=== PATIENT | female | born 1970 | race Caucasian/White ===

== ENCOUNTER → 2019-08-10 09:39 | Outpatient (CLI) | payer BC, SELFPAY | PROVIDERS: PCP Nurse Practitioner Family; Referring Provider Family Medicine; Visit Provider Family Medicine | DX: R91.8 Other nonspecific abnormal finding of lung field (principal) ==

== ENCOUNTER → 2019-08-17 10:00 | Outpatient (CLI) | payer BC, SELFPAY ==
--- NOTE | 2019-08-17 10:30 | PET_ITS ---
EXAMINATION: FDG PET CT INDICATIONS: A 48-year-old female with reported history of pulmonary nodularity. COMPARISON EXAMINATION: None available. NON-INDEX LESION SIZE SUV INTERPRETATION Bilateral thoracic perihilum 2.5 (max) Quantitative criteria for viable neoplasm are not fulfilled TECHNIQUE: Following the intravenous administration of 16.38 mCi of F-18 deoxyglucose via the right antecubital fossa, multiplanar image acquisitions of the neck, chest, abdomen and pelvis to level of mid thigh, obtained at one hour post radiopharmaceutical administration contemporaneously interpreted with the current CT of the neck, chest, abdomen and pelvis to level of mid thigh, dated 08/17/19 via coregistration reveal: SERUM GLUCOSE LEVEL: 90 mg/dl. HEIGHT: 67 inches. WEIGHT: 215 lbs. FINDINGS: 1. Mild increased glucose concentration is demonstrated in the bilateral thoracic perihilum generating a calculated maximum standard uptake value of 2.5. Quantitative criteria for neoplasm are not fulfilled. 2. Normal physiologic distribution of the radiopharmaceutical is apparent in the hepatic (3.8) and splenic parenchyma, both renal units, bladder and visualized intestinal tract. There is uniform distribution of the radiopharmaceutical concentration defined in the visualized cerebellar hemispheres and cerebral cortical structures.? Diffuse intestinal tract activity is noted throughout all four quadrants of the abdominal-pelvic retroperitoneum, mesentery consistent with normal physiologic distribution of the radiopharmaceutical most accentuated in the proximal-mid ascending colon. Prominent glucose concentration is observed in the left ventricular myocardium commensurate with the pattern associated with failure to fast. (Kiera, Journal of Nuclear Medicine Technology 31:3, 2003). Facilitated radiopharmaceutical concentration is observed in the proximal-distal esophagus, gastroesophageal junction, diffusely apparent throughout the visualized abdominal and pelvic retroperitoneum and mesentery contiguous to the gastrointestinal tract. There is facilitated uptake noted in the bilateral perioccipital regions, as well as right axilla without evidence of corresponding soft tissue most consistent with visualization of brown adipose tissue. (Braden epps al, Journal of Nuclear Medicine 29:1393, 2002). Pertinent CT findings are as follows. CHEST: A calcified density noted in the right mid anteromedial lung field is non-glucose avid. Atherosclerotic calcification is defined in the thoracic aorta without evidence of dilatation, aneurysm formation. Bilateral axillary and scattered calcified and noncalcified mediastinal and thoracic perihilar soft tissue is ametabolic. ABDOMEN AND PELVIS: There is borderline fatty metamorphosis defined within the hepatic parenchyma. Atherosclerotic calcification is defined in the abdominal aorta without evidence of dilatation, aneurysm formation. Pelvic arterial calcification is observed. Right-left inguinal soft tissue densities with fatty hilus formation demonstrate no evidence of increased glucose metabolism. SKELETAL: Degenerative changes defined in the cervical, thoracic and lumbar spine demonstrate no evidence for glucose hypermetabolism. PET/PET/CT Tumor Base -Thigh Init IMPRESSION: 1. NEGATIVE EXAMINATION. There is no definitive quantitative scintigraphic evidence of viable neoplasm. 2. Mild enhanced FDG distribution noted in the bilateral thoracic perihilum does not fulfill quantitative criteria for viable neoplasm. (Wanda et al, Journal of Clinical Oncology 16:2142, 1998). 3. Prominent intestinal tract distribution of radiopharmaceutical noted in the region of the proximal-mid ascending colon is most consistent with physiologic distribution of the radiopharmaceutical. If intraluminal soft tissue mass formation is a diagnostic consideration, correlation with CT of the abdomen and pelvis with oral and intravenous contrast is recommended. (Do[place]inna et al, Journal of Nuclear Medicine, 30:S276, 2003). 4. Anatomic stability may be ensured in the nonglucose avid, calcified right lung parenchymal density with repeat CT of the thorax in three-six months. (Costa, Seminars in Thoracic and Cardiovascular Surgery 14:292, 2002). Electronic Signature Cricket Pena D.O. Electronically Signed: Cricket Pena DO at 23:35 EST Tel , Service support ,
== END ==
LOC: ONC 10:01
PROVIDERS: PCP Nurse Practitioner Family; Referring Provider Family Medicine; Visit Provider Family Medicine
DX: R91.8 Other nonspecific abnormal finding of lung field (principal)
CPT/HCPCS: 78815; A9552

== ENCOUNTER → 2019-09-08 10:54 | Outpatient (CLI) | payer BC, SELFPAY ==
--- NOTE | 2019-09-08 10:57 | ECHOD_ITS ---
Reason For Study: SOB with exertion Procedure This was a 2D Doppler, Color Flow transthoracic echocardiogram. Exam performed in department. Left Ventricle Normal size and thickness. The estimated ejection fraction is 60 %. No evidence for diastolic dysfunction. No regional wall motion abnormalities noted. Right Ventricle Normal RV size. Normal systolic function. Atria Normal left atrium. Normal right atrium. No doppler evidence for ASD. Mitral Valve There is no mitral valve stenosis. No mitral valve insufficiency. Tricuspid Valve There is no tricuspid stenosis. Unable to estimate RV systolic pressure due to inadequate jet, pulmonary artery pressure probably normal. Aortic Valve Trisinus/trileaflet aortic valve. There is no aortic stenosis. No aortic valve insufficiency. Pulmonic Valve There is no pulmonic valvular stenosis. No pulmonic valve insufficiency. Great Vessels Normal aortic root. Pericardium/Pleural No pericardial effusion. MMode/2D Measurements & Calculations LVIDd: 4.7 cm IVSd: 1.1 cm Ao root diam: 2.8 cm LVIDs: 3.0 cm LVPWd: 1.1 cm RVDd: 2.9 cm FS: 35.3 % LAV(MOD-bp): 51.3 ml LA A4 area: 17.2 cm2 LA dimension(2D): 3.7 cm LAV(MOD-bp) Indexed: 24.8 ml/m2 LAV(MOD-sp2): 51.0 ml LAV(MOD-sp4): 50.0 ml RA A4 area: 15.3 cm2 Time Measurements MV dec time: 0.21 sec Doppler Measurements & Calculations MV E max georges: 85.4 cm/sec Lat Peak E' Georges: 8.0 cm/sec Med Peak E' Georges: 5.9 cm/sec MV A max georges: 89.2 cm/sec E/E' lat: 10.7 E/E' med: 14.6 MV E/A: 0.96 Ao V2 max: 162.0 cm/sec LV V1 max: 105.4 cm/sec PA V2 max: 101.1 cm/sec Ao max P.6 mmHg LV V1 max P.4 mmHg Interpretation Summary The estimated ejection fraction is 60 %. No evidence for diastolic dysfunction. Ordering Physician: Yvonne Morales Referring Physician: Yvonne Morales Performed By: Lillian Estrada, DUANE, RVT
== END ==
LOC: CVS 10:55
PROVIDERS: Referring Provider Nurse Practitioner Family; Visit Provider Nurse Practitioner Family
DX: R06.02 Shortness of breath (principal)
CPT/HCPCS: 93306

== ENCOUNTER 2022-04-26 19:45 | Emergency (ER) | payer MEDICAID, SELFPAY ==
[2022-04-26 19:45] VITALS: BP 167/81; PULSE 101; RESP 16; TEMP 36.6; O2SAT 99; BMI 31.3
[2022-04-26 20:21] VITALS: BP 132/78; PULSE 74; RESP 14; O2SAT 98
--- NOTE | 2022-06-13 17:09 | ED.VIS.BACK ---
HPI History of Present Illness Chief Complaint: Back Informant: patient Onset/Context/Timing Onset: Days Context: Gradual Onset Timing: Intermittent Quality: Aching and Burning Location: Left Leg Current Severity: Moderate Maximum Severity: Moderate Worsened by: improves with Movement Relieved by: Remaining Still Associated Symptoms Associated Symptoms: Numbness, Tingling and Radiation to Left Leg; Negative for Unable to Ambulate, Urinary Retention, Urinary Incontinence, Constipation or Fecal Incontinence Narrative Narrative: This patient was originally seen on 04/26/2022. Dictation was either not done at that time or some mild loss. Being redictated on 06/13/2022 at 5:15 PM to the best of my recommendation and knowledge of the prior visit and evaluation. 51-year-old female has chronic back pain with a history of degenerative disc disease. States that she has pain in her lower back with radiation to her left buttock hamstring and lower leg. Denies any bowel or bladder incontinence. Denies any fall or trauma. No fever. Prior similar symptoms: Yes Recent Illness/Hospitalization: No PFSH PFSH Medical History Anxiety Back pain Degenerative disc disease Depression HTN (hypertension) Home Medications hydroxyzine pamoate 25 mg capsule 25 mg PO TID PRN PRN Anxiety ##30 04/02/16 [Rx Last Taken Unknown] lisinopril 10 mg tablet 10 mg PO DAILY 04/02/16 [History Last Taken Unknown] pregabalin 150 mg capsule 150 mg PO TID 04/28/22 [History Last Taken Unknown] simvastatin 10 mg tablet 1 tab PO QHS 04/28/22 [History Last Taken Unknown] omeprazole 20 mg capsule,delayed release 20 mg PO DAILY 05/26/22 [History Last Taken Unknown] oxycodone-acetaminophen 5 mg-325 mg tablet (Percocet) 1 tab PO Q6H PRN pain 3 days #10 tabs 05/26/22 [Rx Last Taken Unknown] sertraline 100 mg tablet 100 mg PO DAILY 05/26/22 [History Last Taken Unknown] tizanidine 2 mg capsule 2 mg PO Q8H PRN muscle spasticity #10 caps 05/26/22 [Rx Last Taken Unknown] Allergy/AdvReac Type Severity Reaction Status Date / Time No Known Allergies Allergy Verified 05/26/22 17:16 Social History Smoking Status: Current every day smoker tobacco type: cigarettes ROS ROS ED ROS Narrative Back pain. Review of Systems ROS Unobtainable: Denies due to encephalopathy Constitutional Constitutional ED: Denies chills Eyes Eyes: Denies blurry vision ENT ENT ED: Denies ear pain Cardiovascular Cardiovascular: Denies chest pain Respiratory/Chest Respiratory/Chest: Denies dyspnea Gastrointestinal Gastrointestinal: Denies abdominal pain Genitourinary Genitourinary ED: Denies dysuria Musculoskeletal Musculoskeletal: Denies arthralgias Integumentary Denies abscess Neurologic Neurologic: Denies headache(s) Psychiatric Psychiatric: Denies anxiety Endocrine Endocrinology: Denies cold intolerance Hematologic/Lymphatic Hematologic/Lymphatic: Denies easy bleeding Allergic/Immunologic Allergic/Immunologic ED: Denies mouth swelling EXAM Physical Exam Narrative Exam Narrative: Middle-aged female vital signs are stable afebrile. H EENT exam unremarkable. Neck nontender. Lungs are clear. Heart regular rhythm no murmur. Abdomen soft nontender. Obese. Moving all 4 extremities. 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 Dorsi plantarflexion intact. No cauda equina. No saddle anesthesia. Left SI tenderness. Positive straight leg raise on the left at about 30 degrees. No signs of trauma. Neurologic exam unremarkable. No focal motor deficits. Const Positive well nourished, well developed and obese; Negative for cachectic, contractures or unkempt General Appearance ED: well developed and NAD; Negative for unkempt, cachectic, contractures or pallor Nutritional Appearance: obese; Negative for cachectic HEENT Reports moist mucous membranes Negative for trauma Eyes PERRL and EOMs intact bilaterally General Eye ED: Negative for pale conjunctiva or scleral icterus Neck no lymphadenopathy, supple and no JVD General: Negative for tenderness Thyroid: Negative for other Chest Wall Chest: Negative for other Resp normal respiratory effort and clear to auscultation bilaterally Effort and Inspection: Negative for pain with movement Auscultation: Negative for rales Percussion: Negative for other Cardio regular rate, regular rhythm, S1 normal heart sound, S2 normal heart sound and no murmurs Palpation: Negative for palpable S3 Rate: Negative for bradycardia Rhythm: Negative for abnormal rhythm Bruits: Negative for other GI normal to inspection, nondistended, normoactive bowel sounds, soft to palpation, non-tender, non-distended and no masses Inspection: Negative for abdominal distention Auscultation: Negative for hyperactive bowel sounds Palpation: Negative for tender, guarding, pulsatile mass or rebound tenderness present Back/Spine normal to inspection and no thoracic nor lumbar tenderness Back/Spine Narrative: Left SI tenderness. Left straight leg raise at 45 degrees. General Back: Negative for CVA tenderness Cervical Spine: Negative for cervical spine tenderness Thoracic Spine / Upper Back: Negative for paraspinal muscle tenderness Extremity normal to inspection and no clubbing, cyanosis or edema General Extremety ED: Negative for edema General Extremity: Negative for edema Neuro oriented x3 and no sensory deficits noted Sensorium / Orientation: alert; Negative for confused, lethargic or stuporous Psych Appearance: Negative for unkempt Attitude: No agitated Mood & Affect: Negative for depressed or sad Skin no rashes or lesions noted and no wounds General Skin Exam: Negative for jaundice or pallor Rashes: No rashes noted Trauma: Negative for abrasion Wounds: Negative for wounds noted MDM MDM MDM Narrative Medical decision making narrative: Patient with acute on chronic back pain with left sciatica. May be secondary to degenerative disc disease. She will be discharged home with limited pain medication. Follow-up with primary care provider. She does not need any acute imaging this evaluation. Discharge Plan Triage Chief Complaint: Back ED Provider: Filipe Chambers Dx/Rx/DC Orders Clinical Impression: Back pain, Degenerative disc disease at L5-S1 level Prescriptions: No Action lisinopril 10 MG tablet 10 mg PO DAILY hydroxyzine pamoate 25 MG capsule 25 mg PO TID PRN PRN (Reason: Anxiety) Qty: 30 0RF Rx Instructions: causes drowsiness simvastatin 10 mg tablet 1 tab PO QHS pregabalin 150 mg Capsule 150 mg PO TID sertraline 100 mg Tablet 100 mg PO DAILY omeprazole 20 mg Capsule,Delayed Release(Dr/Ec) 20 mg PO DAILY oxycodone-acetaminophen [Percocet] 5-325 mg tablet 1 tab PO Q6H PRN (Reason: pain) 3 Days Qty: 10 0RF tizanidine 2 mg capsule 2 mg PO Q8H PRN (Reason: muscle spasticity) Qty: 10 0RF Primary Care Provider: Yvonne Morales NP Referrals: Yvonne Morales BACK UP MACHINE OPERATOR, BACK UP MACHINE OPERATOR-C [Primary Care Provider] - As Needed Activity Restrictions/Additional Instructions: Percocet for pain. Follow-up with your back doctor. Continue and finish your steroids. Return if worsening pain, leg weakness or bowel or bladder incontinence. Definitely need to follow-up needed to get you an MRI if this is not improving. Disposition Disposition: Home, Self Care Discharge Date/Time: 04/26/22 20:43
== END 2022-04-26 20:43 | disposition home or self-care (01) ==
PROVIDERS: Emergency Provider Emergency Medicine; PCP Nurse Practitioner Family; Visit Provider Emergency Medicine
DX: M51.16 Intervertebral disc disorders with radiculopathy, lumbar region (principal); G89.29 Other chronic pain; I10 Essential (primary) hypertension; E66.9 Obesity, unspecified; F17.210 Nicotine dependence, cigarettes, uncomplicated; Z68.31 Body mass index [BMI] 31.0-31.9, adult; Z79.899 Other long term (current) drug therapy
CPT/HCPCS: 99282

== ENCOUNTER 2022-04-28 01:51 | Emergency (ER) | payer MEDICAID, SELFPAY ==
[2022-04-28 01:51] VITALS: BP 189/93; PULSE 90; RESP 16; TEMP 36.1; O2SAT 97; BMI 34.7
--- NOTE | 2022-04-28 02:27 | ED.VIS.BACK ---
HPI History of Present Illness Chief Complaint: Back Detail of Chief Complaint: Back pain and left toe numbness and tingling Informant: patient Onset/Context/Timing Current Severity: Severe Narrative Narrative: Patient presents to the emergency department with chronic back pain. Patient states that over the last 3 days she has had more pain in her left low back that radiates down her leg from her hip down to the great toe. She complains of a burning sensation in the great toe. She was seen in the emergency department last night for same and was given a prescription for Percocet. Patient also just finished prednisone last evening. She is on gabapentin. Patient took her oxycodone but did not get relief of the pain in her toe. Patient denies weakness in extremities. She denies loss of bowel or bladder function. She denies fevers. Patient states that she has a back surgeon that she is seeing and has been through physical therapy and has been through injections. Patient states its been years since he has had an MRI of her back but is in the process of getting approved for 1. Patient has history of herniated disks in her back. Prior similar symptoms: No PFSH PFS Medical History (Updated 04/28/22 @ 03:[address] Lucas Roche, DO) Anxiety Depression HTN (hypertension) Home Medications gabapentin 300 mg capsule 300 mg PO TIDCM 04/02/16 [History Last Taken Unknown] hydroxyzine pamoate 25 mg capsule 25 mg PO TID PRN PRN Anxiety ##30 04/02/16 [Rx Last Taken Unknown] lisinopril 10 mg tablet 10 mg PO DAILY 04/02/16 [History Last Taken Unknown] oxycodone-acetaminophen 5 mg-325 mg tablet (Percocet) 1 tab PO Q4H PRN pain 5 days #20 tabs 04/26/22 [Rx Last Taken Unknown] pregabalin 150 mg capsule 150 mg PO TID 04/28/22 [History Last Taken Unknown] simvastatin 10 mg tablet 1 tab PO QHS 04/28/22 [History Last Taken Unknown] Allergy/AdvReac Type Severity Reaction Status Date / Time No Known Allergies Allergy Verified 04/28/22 01:54 Social History Smoking Status: Current every day smoker tobacco type: cigarettes ROS ROS ED Review of Systems ROS Unobtainable: other Constitutional Constitutional ED: Reports lethargy; Denies chills, fever(s), sweats or weight loss Eyes Eyes: Denies blurry vision, change in vision or diplopia ENT ENT ED: Denies rhinorrhea or sore throat Cardiovascular Cardiovascular: Reports chest pain and racing heartbeat; Denies orthopnea Respiratory/Chest Respiratory/Chest: Reports dyspnea and dyspnea on exertion; Denies cough, orthopnea or sputum Gastrointestinal Gastrointestinal: Denies abdominal pain, diarrhea, nausea or vomiting Genitourinary Genitourinary ED: Denies dysuria, hematuria or urinary frequency Musculoskeletal Musculoskeletal: Reports back pain; Denies arthralgias, myalgias or neck pain Integumentary Denies abscess, Abrasions or rash Neurologic Neurologic: Reports paresthesias and other Details: Paresthesias left great toe ; Denies headache(s) or weakness Psychiatric Psychiatric: Denies anxiety, depression or suicidal thoughts Endocrine Endocrinology: Denies polydipsia, polyphagia or polyuria Hematologic/Lymphatic Hematologic/Lymphatic: Denies easy bleeding, easy bruising or lymphadenopathy Allergic/Immunologic Allergic/Immunologic ED: Denies mouth swelling, tongue swelling or urticaria EXAM Physical Exam Const Vital Signs: 04/28/22 01:51 Temperature 97 F L Temperature Source Temporal Pulse Rate 90 Respiratory Rate 16 Blood Pressure 189/93 H Blood Pressure Mean 125 Pulse Ox 97 Oxygen Delivery Method Room Air Positive well nourished and well developed General Appearance ED: well developed and NAD HEENT Reports TM's clear and moist mucous membranes normocephalic and atraumatic; Negative for trauma or tenderness Tympanic Membrane ED: Yes TM's clear Eyes PERRL and EOMs intact bilaterally General Eye ED: Negative for pale conjunctiva or scleral icterus Neck no lymphadenopathy, supple and no JVD General: Negative for tenderness Chest Wall inspection of chest normal and palpation of chest normal Chest: Negative for tenderness Resp normal respiratory effort and clear to auscultation bilaterally Effort and Inspection: Negative for respiratory distress or pain with movement Auscultation: Negative for rhonchi, wheezes or diminished lung sounds Cardio regular rate, regular rhythm, S1 normal heart sound, S2 normal heart sound and no murmurs Peripheral Pulses: pulses 2+ throughout GI normal to inspection, nondistended, normoactive bowel sounds, soft to palpation, non-tender, non-distended and no masses Back/Spine no CVA tenderness and no thoracic nor lumbar tenderness Back/Spine Narrative: No significant tenderness over the thoracic or lumbar spine. She has negative straight leg raises. Deep tendon reflexes are plus 2 out of 4 bilaterally at the patella and Achilles. Patient has normal L5 extension bilaterally. Normal sensation to light touch to both lower extremities except to the great toe on the left which she has decree sensation to. Extremity normal to inspection Extremity Narrative: Patient did have palpable dorsal pedal and posterior tibial pulses bilaterally. Also dopplered pulses in the left foot at the dorsal pedal and posterior tibial. Patient had normal popliteal pulses. General Extremety ED: Negative for edema General Extremity: Negative for edema Neuro oriented x3, CN's II-XII intact bilaterally, no sensory deficits noted and gait normal Sensorium / Orientation: awake, alert, oriented to person, oriented to place and oriented to time Motor Exam: strength 5/5 throughout and strength abnormal Psych mental status grossly normal Skin no rashes or lesions noted and no wounds MDM MDM MDM Narrative Medical decision making narrative: Patient was given Dilaudid 1 mg IM as well as Zofran 4 mg IM. I offered to admit the patient for pain control. Patient is refusing admission. I also expressed that if we admitted her we could potentially obtain an MRI of her back during the admission however she does not want to be admitted and states that she will follow-up with her back surgeon and have them order it. After the Dilaudid I did reevaluate the patient and she is feeling improved. Again patient is refusing to be admitted. I suspect she likely has a neuropathy related to lumbar radiculopathy. There are no red flag signs and symptoms of cauda equina. Patient states she will return if symptoms worsen otherwise she will follow-up with her back specialist. Discharge Plan Triage Chief Complaint: Back ED Provider: Lucas Roche Dx/Rx/DC Orders Clinical Impression: Acute exacerbation of chronic low back pain, Acute left lumbar radiculopathy Instructions: ED Back Pain (Acute or Chronic), ED Sciatica Prescriptions: No Action lisinopril 10 MG tablet 10 mg PO DAILY gabapentin 300 MG capsule 300 mg PO TIDCM hydroxyzine pamoate 25 MG capsule 25 mg PO TID PRN PRN (Reason: Anxiety) Qty: 30 0RF Rx Instructions: causes drowsiness oxycodone-acetaminophen [Percocet] 5-325 mg tablet 1 tab PO Q4H MDD 6 PRN (Reason: pain) 5 Days Qty: 20 0RF simvastatin 10 mg tablet 1 tab PO QHS pregabalin 150 mg Capsule 150 mg PO TID Primary Care Provider: Yvonne Morales NP Referrals: Yvonne Morales NP, CARDIOPULMONARY SUPERVISOR-C [Primary Care Provider] - Activity Restrictions/Additional Instructions: Follow-up with your back surgeon at the earliest possible time. Continue with your pregabalin. Disposition Disposition: Home, Self Care
[2022-04-28] MEDS: Ondansetron 4 MG/2 ML Vial IM (02:32)
[2022-04-28] MEDS: HYDROmorphone 1 MG/ML Syringe IM (02:32)
== END 2022-04-28 03:12 | disposition home or self-care (01) ==
PROVIDERS: Emergency Provider Emergency Medicine; PCP Nurse Practitioner Family; Visit Provider Emergency Medicine
DX: M54.16 Radiculopathy, lumbar region (principal); G89.29 Other chronic pain; I10 Essential (primary) hypertension; F17.210 Nicotine dependence, cigarettes, uncomplicated; Z79.891 Long term (current) use of opiate analgesic; Z79.899 Other long term (current) drug therapy
CPT/HCPCS: 96372; 99282; J2405

== ENCOUNTER 2022-04-28 12:01 | Emergency (ER) | payer MEDICAID, SELFPAY ==
[2022-04-28 12:03] VITALS: BP 132/72; PULSE 86; RESP 16; TEMP 36.4; O2SAT 97; BMI 31.3
--- NOTE | 2022-04-28 13:38 | EDS_ITS ---
HPI History of Present Illness Chief Complaint: Numb/Ting Informant: patient Narrative Narrative: Patient presents with left lower back and buttock pain radiating down the lateral aspect of her leg and into her medial 3 toes. This is all on the left side. Not on the right. She has no bowel or bladder dysfunction. No saddle anesthesia. No incontinence. No fevers or chills. No acute trauma. She has a long history of having problems with the back but has never had surgery. She has had injections and physical therapy. She had an MRI but this was a year or more ago. She states that the symptoms started about 4 days ago. But she started prednisone about a week ago. She states her doctor in [place] who is the spine estephania gave her the prednisone to see if that will help her symptoms. But she states the exacerbation of pain started a few days after taking the prednisone. She has had radicular symptoms in the past. The last episode she had was on the right side about 6 months ago. Patient has also had physical therapy recently but stopped because it made things worse. That might of been what prompted the steroids. She is set to have water therapy now. She has talked to her spine physician in [place] who stated they need to do therapy before they get an MRI. Patient is also not had any recent infections. She has a history of neuropathy and has been on gabapentin for a while. However, she was given Percocet on a visit here 2 days ago and that is the only prescription for narcotics that I find in the last 2 years. I think the patient is having true pain and is not seeking narcotics at all. [facility] Medical History Anxiety Depression HTN (hypertension) Home Medications gabapentin 300 mg capsule 300 mg PO TIDCM 04/02/16 [History Last Taken Unknown] hydroxyzine pamoate 25 mg capsule 25 mg PO TID PRN PRN Anxiety ##30 04/02/16 [Rx Last Taken Unknown] lisinopril 10 mg tablet 10 mg PO DAILY 04/02/16 [History Last Taken Unknown] oxycodone-acetaminophen 5 mg-325 mg tablet (Percocet) 1 tab PO Q4H PRN pain 5 days #20 tabs 04/26/22 [Rx Last Taken Unknown] carbamazepine 100 mg tablet,extended release,12 hr (Tegretol XR) 100 mg PO BID #14 tabs 04/28/22 [Rx Last Taken Unknown] pregabalin 150 mg capsule 150 mg PO TID 04/28/22 [History Last Taken Unknown] simvastatin 10 mg tablet 1 tab PO QHS 04/28/22 [History Last Taken Unknown] Allergy/AdvReac Type Severity Reaction Status Date / Time No Known Allergies Allergy Verified 04/28/22 01:54 Social History Smoking Status: Current every day smoker tobacco type: cigarettes ROS ROS ED Constitutional Constitutional ED: Denies chills or fever(s) ENT ENT ED: Denies rhinorrhea Cardiovascular Cardiovascular: Denies chest pain or palpitations Respiratory/Chest Respiratory/Chest: Denies cough or dyspnea Gastrointestinal Gastrointestinal: Denies abdominal pain, constipation, diarrhea, melena, nausea or vomiting Genitourinary Genitourinary ED: Denies dysuria, hematuria or urinary frequency Musculoskeletal Musculoskeletal: Reports back pain Integumentary Denies Abrasions or rash Neurologic Neurologic: Reports paresthesias; Denies headache(s) or weakness Psychiatric Psychiatric: Denies anxiety or depression Endocrine Endocrinology: Denies polydipsia or polyuria Hematologic/Lymphatic Hematologic/Lymphatic: Denies easy bleeding or easy bruising Allergic/Immunologic Allergic/Immunologic ED: Denies urticaria EXAM Physical Exam Const Vital Signs: 04/28/22 12:03 Temperature 97.5 F L Temperature Source Temporal Pulse Rate 86 Respiratory Rate 16 Blood Pressure 132/72 H Blood Pressure Mean 92 Pulse Ox 97 Oxygen Delivery Method Room Air Positive well nourished, well developed and obese; Negative for unkempt General Appearance ED: well developed; Negative for unkempt, cyanotic or diaphoretic Nutritional Appearance: obese HEENT Reports moist mucous membranes Eyes EOMs intact bilaterally Neck no lymphadenopathy Chest Wall inspection of chest normal Resp normal respiratory effort and clear to auscultation bilaterally Cardio regular rate, regular rhythm and no murmurs GI normal to inspection, nondistended, normoactive bowel sounds, non-tender and non-distended Back/Spine Back/Spine Narrative: Patient really does not have any notable spine or paraspinal tenderness. She has a little bit of tenderness toward the sciatic notch on the left. But although she has significant pain is not really reproduced by palpation. Extremity normal to inspection Extremity Narrative: No edema, asymmetry or distended veins. No obvious sensation loss. She states she has some tingling in both feet but that is kind of chronic. She has burning in her medial 3 toes of the left foot. Neuro oriented x3 Neuro Narrative: Patient has excellent peripheral deep tendon reflexes. Strong 2+ bilateral patellar and Achilles. No clonus.No sign of weakness. Psych Appearance: Negative for unkempt Skin no rashes or lesions noted MDM MDM MDM Narrative Medical decision making narrative: Patient actually got excellent relief from Dilaudid. She has been here over 5 hours. She was complaining of more pain. However when I went in the room I did actually wake her up. She is still hurting. I think this patient genuinely has pain. I do not think she is seeking narcotics. But I also do not think she acutely needs an MRI. She has pain and burning that shoots down her leg but no numbness tingling or weakness no bowel or bladder dysfunction. No saddle anesthesia. I think we need to manage her pain. Her cardiovascular specialist states that she should get an MRI if she fails physical therapy. She had her first physical therapy appointment on Saturday and that was just introductory. We did discuss the case. I will put a low-dose of fentanyl patch on. She can then supplement with Percocet. This will give her a baseline level of pain control. She states that the Percocet works but it wears off. This will help decrease that. I will also start a low-dose of Tegretol to see if this gives her some advantage. She might need this titrated up. We discussed reasons to return. Discharge Plan Triage Chief Complaint: Numb/Ting ED Provider: Fortunato Dumont Dx/Rx/DC Orders Clinical Impression: Acute exacerbation of chronic low back pain, Acute left lumbar radiculopathy Instructions: ED Back Pain (Acute or Chronic) Prescriptions: New carbamazepine [Tegretol XR] 100 mg tablet extended release 12 hr 100 mg PO BID Qty: 14 0RF No Action lisinopril 10 MG tablet 10 mg PO DAILY gabapentin 300 MG capsule 300 mg PO TIDCM hydroxyzine pamoate 25 MG capsule 25 mg PO TID PRN PRN (Reason: Anxiety) Qty: 30 0RF Rx Instructions: causes drowsiness oxycodone-acetaminophen [Percocet] 5-325 mg tablet 1 tab PO Q4H MDD 6 PRN (Reason: pain) 5 Days Qty: 20 0RF simvastatin 10 mg tablet 1 tab PO QHS pregabalin 150 mg Capsule 150 mg PO TID Primary Care Provider: Yvonne Morales NP Referrals: Yvonne Morales NP, CAGE/VAULT SUPERVISOR-C [Primary Care Provider] - 3-5 Days if not improving Activity Restrictions/Additional Instructions: Follow-up with your spine surgeon in [place]. Disposition Disposition: Home, Self Care
[2022-04-28] MEDS: Triamcinolone Acetonide 40 MG/ML Vial IM (13:47)
[2022-04-28] MEDS: Ondansetron 4 MG/2 ML Vial IM (13:48)
[2022-04-28] MEDS: HYDROmorphone 1 MG/ML Syringe IM (13:48)
[2022-04-28] MEDS: Orphenadrine 60 MG/2 ML Ampul IM (13:48)
[2022-04-28 17:00] VITALS: BP 128/48; PULSE 72; RESP 16; TEMP 36.7; O2SAT 96
[2022-04-28] MEDS: HYDROmorphone 1 MG/ML Syringe IV (17:28)
[2022-04-28] MEDS: fentaNYL 25 MCG Patch TD (17:36)
== END 2022-04-28 18:03 | disposition home or self-care (01) ==
PROVIDERS: Emergency Provider Emergency Medicine; PCP Nurse Practitioner Family; Visit Provider Emergency Medicine
DX: M54.16 Radiculopathy, lumbar region (principal); G89.29 Other chronic pain; I10 Essential (primary) hypertension; G62.9 Polyneuropathy, unspecified; E66.9 Obesity, unspecified; F17.210 Nicotine dependence, cigarettes, uncomplicated; Z68.31 Body mass index [BMI] 31.0-31.9, adult; Z79.891 Long term (current) use of opiate analgesic; Z79.899 Other long term (current) drug therapy
CPT/HCPCS: 96372; 99282; 99283; J2405

== ENCOUNTER 2022-05-02 10:55 | Emergency (ER) | payer MEDICAID, SELFPAY ==
[2022-05-02 10:55] VITALS: BP 142/97; PULSE 100; RESP 16; TEMP 36.8; O2SAT 98; BMI 31.3
--- NOTE | 2022-05-02 11:28 | ED.VIS.LOWEX ---
HPI History of Present Illness Chief Complaint: Lower Extremity Injury Detail of Chief Complaint: Neck pain and pain down left leg Informant: patient Narrative Narrative: Patient presents the emergency department complaint of back pain radiating down her left leg that she has had for over a week. Patient has a history of slipped disks in her back. Patient sees a back surgeon in [place] and has an MRI scheduled for May 29. Patient was seen 4 days ago in the ER for same by myself and a second ER physician. At that time patient refused admission. She was medicated with Dilaudid and had good pain relief with that. She had been given Percocet prior to the visit where she was seen by me. Patient also had a Duragesic patch applied which she states then fell off and she is run out of her pain medication. Patient is scheduled to see pain management in 5 days. Patient denies injury. She denies loss of bowel or bladder function. She denies weakness to the extremity. She has been ambulating. [facility] Medical History Anxiety Depression HTN (hypertension) Home Medications gabapentin 300 mg capsule 300 mg PO TIDCM 04/02/16 [History Last Taken Unknown] hydroxyzine pamoate 25 mg capsule 25 mg PO TID PRN PRN Anxiety ##30 04/02/16 [Rx Last Taken Unknown] lisinopril 10 mg tablet 10 mg PO DAILY 04/02/16 [History Last Taken Unknown] oxycodone-acetaminophen 5 mg-325 mg tablet (Percocet) 1 tab PO Q4H PRN pain 5 days #20 tabs 04/26/22 [Rx Last Taken Unknown] carbamazepine 200 mg tablet (Tegretol) 100 mg PO BID #10 tabs 04/28/22 [Rx Last Taken Unknown] pregabalin 150 mg capsule 150 mg PO TID 04/28/22 [History Last Taken Unknown] simvastatin 10 mg tablet 1 tab PO QHS 04/28/22 [History Last Taken Unknown] oxycodone-acetaminophen 5 mg-325 mg tablet 1 tab PO Q6H PRN PRN pain 5 days #20 TABLETS 05/02/22 [Rx Last Taken Unknown] Allergy/AdvReac Type Severity Reaction Status Date / Time No Known Allergies Allergy Verified 05/02/22 10:58 Social History Smoking Status: Current every day smoker tobacco type: cigarettes ROS ROS ED Review of Systems ROS Unobtainable: other Constitutional Constitutional ED: Reports lethargy; Denies chills, fever(s), sweats or weight loss Eyes Eyes: Denies blurry vision, change in vision or diplopia ENT ENT ED: Denies rhinorrhea or sore throat Cardiovascular Cardiovascular: Reports chest pain and racing heartbeat; Denies orthopnea Respiratory/Chest Respiratory/Chest: Reports dyspnea and dyspnea on exertion; Denies cough, orthopnea or sputum Gastrointestinal Gastrointestinal: Denies abdominal pain, diarrhea, nausea or vomiting Genitourinary Genitourinary ED: Denies dysuria, hematuria or urinary frequency Musculoskeletal Musculoskeletal: Reports back pain; Denies arthralgias, myalgias or neck pain Integumentary Denies abscess, Abrasions or rash Neurologic Neurologic: Reports paresthesias; Denies headache(s) or weakness Psychiatric Psychiatric: Denies anxiety, depression or suicidal thoughts Endocrine Endocrinology: Denies polydipsia, polyphagia or polyuria Hematologic/Lymphatic Hematologic/Lymphatic: Denies easy bleeding, easy bruising or lymphadenopathy Allergic/Immunologic Allergic/Immunologic ED: Denies mouth swelling, tongue swelling or urticaria EXAM Physical Exam Const Vital Signs: 05/02/22 10:55 Temperature 98.2 F Temperature Source Temporal Pulse Rate 100 Respiratory Rate 16 Blood Pressure 142/97 H Blood Pressure Mean 112 Pulse Ox 98 Oxygen Delivery Method Room Air Positive well nourished and well developed General Appearance ED: well developed and NAD HEENT Reports TM's clear and moist mucous membranes normocephalic and atraumatic; Negative for trauma or tenderness Tympanic Membrane ED: Yes TM's clear Eyes PERRL and EOMs intact bilaterally General Eye ED: Negative for pale conjunctiva or scleral icterus Neck no lymphadenopathy, supple and no JVD General: Negative for tenderness Chest Wall inspection of chest normal and palpation of chest normal Chest: Negative for tenderness Resp normal respiratory effort and clear to auscultation bilaterally Effort and Inspection: Negative for respiratory distress or pain with movement Auscultation: Negative for rhonchi, wheezes or diminished lung sounds Cardio regular rate, regular rhythm, S1 normal heart sound, S2 normal heart sound and no murmurs Peripheral Pulses: pulses 2+ throughout GI normal to inspection, nondistended, normoactive bowel sounds, soft to palpation, non-tender, non-distended and no masses Back/Spine no CVA tenderness and no thoracic nor lumbar tenderness Back/Spine Narrative: Patient with some mild diffuse tenderness over the lumbar paraspinal musculature on the left. She has negative straight leg raises. Deep tendon reflexes are plus out of 4 bilaterally at the patella and Achilles. Patient has normal 5 extension. Patient has normal sensation. Patient has normal pulses. Extremity normal to inspection General Extremety ED: Negative for edema General Extremity: Negative for edema Neuro oriented x3, CN's II-XII intact bilaterally, no sensory deficits noted and gait normal Sensorium / Orientation: awake, alert, oriented to person, oriented to place and oriented to time Motor Exam: strength 5/5 throughout and strength abnormal Psych mental status grossly normal Skin no rashes or lesions noted and no wounds MDM MDM MDM Narrative Medical decision making narrative: Patient was given a shot of Dilaudid 1 mg IM and Zofran 4 mg IM. I will place a Duragesic patch on patient and given a prescription of Percocet to try to get her through until her appointment with pain management. I do not feel patient needs emergent imaging. Patient advised to return if worsening pain, weakness in extremities, change in bowel or bladder function, or condition worsen anyway. Discharge Plan Triage Chief Complaint: Lower Extremity Injury ED Provider: Lucas Roche Dx/Rx/DC Orders Clinical Impression: Back pain, Acute left lumbar radiculopathy Instructions: ED Back Pain (Acute or Chronic), ED Sciatica Prescriptions: New oxycodone-acetaminophen [oxycodone-acetaminophen] 1 TABLET tablet 1 tab PO Q6H PRN PRN (Reason: pain) 5 Days Qty: 20 0RF No Action lisinopril 10 MG tablet 10 mg PO DAILY gabapentin 300 MG capsule 300 mg PO TIDCM hydroxyzine pamoate 25 MG capsule 25 mg PO TID PRN PRN (Reason: Anxiety) Qty: 30 0RF Rx Instructions: causes drowsiness oxycodone-acetaminophen [Percocet] 5-325 mg tablet 1 tab PO Q4H MDD 6 PRN (Reason: pain) 5 Days Qty: 20 0RF simvastatin 10 mg tablet 1 tab PO QHS pregabalin 150 mg Capsule 150 mg PO TID carbamazepine [Tegretol] 200 mg tablet 100 mg PO BID Qty: 10 0RF Primary Care Provider: Yvonne Morales NP Referrals: Yvonne Morales NP, GEAR MILLING MACHINE SET UP OPERATOR-C [Primary Care Provider] - Activity Restrictions/Additional Instructions: Follow-up with pain management in 5 days. Disposition Disposition: Home, Self Care
[2022-05-02] MEDS: fentaNYL 25 MCG Patch TD (12:14)
[2022-05-02] MEDS: HYDROmorphone 1 MG/ML Syringe IM (12:14)
[2022-05-02] MEDS: Ondansetron 4 MG/2 ML Vial IM (12:14)
[2022-05-02 12:57] VITALS: BP 138/70; PULSE 78; RESP 18
== END 2022-05-02 12:57 | disposition home or self-care (01) ==
LOC: ED 11:33
PROVIDERS: Emergency Provider Emergency Medicine; PCP Nurse Practitioner Family; Visit Provider Emergency Medicine
DX: M54.16 Radiculopathy, lumbar region (principal); I10 Essential (primary) hypertension; F17.210 Nicotine dependence, cigarettes, uncomplicated; Z79.899 Other long term (current) drug therapy
CPT/HCPCS: 96372; 99282; J2405

== ENCOUNTER 2022-05-26 17:15 | Emergency (ER) | payer OTHER, MEDICAID, SELFPAY ==
[2022-05-26 17:16] VITALS: BP 158/81; PULSE 94; RESP 16; TEMP 35.9; O2SAT 97; BMI 34.2
--- NOTE | 2022-05-26 17:37 | ED.VIS.BACK ---
HPI History of Present Illness Chief Complaint: Back Informant: patient Onset/Context/Timing Onset: Month(s) Narrative Narrative: Patient presents secondary to acute on chronic back pain. She has chronic back pain and has undergone multiple evaluations, injections, pain management, physical therapy. She is scheduled for an MRI in 2 days. Patient states that the pain is been in her back and radiates down her left leg. It is unchanged in nature and she has not had a new injury. Today she noted some purple discoloration on her foot, specifically in her second, third, fourth toes. She was told that she should be evaluated immediately if this occurs. Patient states that her feet always feel cold, today was no different than baseline. Since she was last in the emergency room 3 weeks ago she was seen by pain management and given short course of tramadol. Patient states that she is currently only taking Tylenol and ibuprofen for pain. She does note that yesterday when her came home she was sitting outside on the ground pulling weeds still trying to get her errands done at home. She does not feel she injured herself in doing this. [facility] Medical History Anxiety Back pain Degenerative disc disease Depression HTN (hypertension) Home Medications hydroxyzine pamoate 25 mg capsule 25 mg PO TID PRN PRN Anxiety ##30 04/02/16 [Rx Last Taken Unknown] lisinopril 10 mg tablet 10 mg PO DAILY 04/02/16 [History Last Taken Unknown] pregabalin 150 mg capsule 150 mg PO TID 04/28/22 [History Last Taken Unknown] simvastatin 10 mg tablet 1 tab PO QHS 04/28/22 [History Last Taken Unknown] omeprazole 20 mg capsule,delayed release 20 mg PO DAILY 05/26/22 [History Last Taken Unknown] oxycodone-acetaminophen 5 mg-325 mg tablet (Percocet) 1 tab PO Q6H PRN pain 3 days #10 tabs 05/26/22 [Rx Last Taken Unknown] sertraline 100 mg tablet 100 mg PO DAILY 05/26/22 [History Last Taken Unknown] tizanidine 2 mg capsule 2 mg PO Q8H PRN muscle spasticity #10 caps 05/26/22 [Rx Last Taken Unknown] Allergy/AdvReac Type Severity Reaction Status Date / Time No Known Allergies Allergy Verified 05/26/22 17:16 Social History Smoking Status: Current every day smoker tobacco type: cigarettes ROS ROS ED Constitutional Constitutional ED: Denies chills or fever(s) Eyes Eyes: Denies change in vision or discharge from eye(s) ENT ENT ED: Denies discharge from eye(s), rhinorrhea or sore throat Cardiovascular Cardiovascular: Denies chest pain or palpitations Respiratory/Chest Respiratory/Chest: Denies cough or dyspnea Gastrointestinal Gastrointestinal: Denies abdominal pain, diarrhea, nausea or vomiting Genitourinary Genitourinary ED: Denies difficulty urinating or dysuria Musculoskeletal Musculoskeletal: Reports back pain and extremity pain Integumentary Denies Abrasions or rash Neurologic Neurologic: Denies headache(s) or weakness Psychiatric Psychiatric: Denies anxiety or depression Allergic/Immunologic Allergic/Immunologic ED: Denies lip swelling or urticaria EXAM Physical Exam Const Vital Signs: 05/26/22 17:16 Temperature 96.7 F L Temperature Source Temporal Pulse Rate 94 Respiratory Rate 16 Blood Pressure 158/81 H Blood Pressure Mean 106 Pulse Ox 97 Oxygen Delivery Method Room Air Positive well nourished and well developed General Appearance ED: well developed HEENT Reports normocephalic and head/scalp atraumatic Eyes PERRL and EOMs intact bilaterally Neck supple Chest Wall inspection of chest normal and palpation of chest normal Resp normal respiratory effort and clear to auscultation bilaterally Cardio regular rate and regular rhythm GI normal to inspection, nondistended, normoactive bowel sounds Palpation: soft Back/Spine no CVA tenderness Back/Spine Narrative: Mild reproducible tenderness in the lumbar paraspinal muscles. Extremity Extremity Narrative: Very minimal discoloration to scattered areas of her distal left foot and second, third, fourth toes. Foot is warm with good cap refill, strength. Neuro oriented x3 Sensorium / Orientation: alert Motor Exam: strength 5/5 throughout Psych mental status grossly normal Skin no rashes or lesions noted MDM MDM MDM Narrative Medical decision making narrative: Patient's does show me pictures of her foot earlier today where she had patches of purple discoloration mostly on the plantar surface of the distal left foot. These seem to be resolved at this time. Patient has never been diagnosed with Raynaud's phenomena. Patient was given 1 mg of IM Dilaudid and 4 mg of IM Zofran. I was called to the room approximately 40 minutes later and patient states that she feels more comfortable and is ready to be discharged. I did review her prior prescriptions. She got tramadol from Dr. Ramirez on May 08 and last prescription for Percocet was from the ER on May 02. I will write her a short course of Percocet to help her through the weekend. I will also write her for tizanidine. She will follow-up Saturday for her MRI. Discharge Plan Triage Chief Complaint: Back ED Provider: Clara Garcia Dx/Rx/DC Orders Clinical Impression: Back pain, Radiculopathy Instructions: ED Back Pain (Acute or Chronic) Prescriptions: New oxycodone-acetaminophen [Percocet] 5-325 mg tablet 1 tab PO Q6H PRN (Reason: pain) 3 Days Qty: 10 0RF tizanidine 2 mg capsule 2 mg PO Q8H PRN (Reason: muscle spasticity) Qty: 10 0RF No Action lisinopril 10 MG tablet 10 mg PO DAILY hydroxyzine pamoate 25 MG capsule 25 mg PO TID PRN PRN (Reason: Anxiety) Qty: 30 0RF Rx Instructions: causes drowsiness simvastatin 10 mg tablet 1 tab PO QHS pregabalin 150 mg Capsule 150 mg PO TID sertraline 100 mg Tablet 100 mg PO DAILY omeprazole 20 mg Capsule,Delayed Release(Dr/Ec) 20 mg PO DAILY Primary Care Provider: Yvonne Morales NP Referrals: Yvonne Morales NP, FUNERAL PLANNING COUNSELOR-C [Primary Care Provider] - 1 Week if not improving Disposition Disposition: Home, Self Care
[2022-05-26] MEDS: HYDROmorphone 1 MG/ML Syringe IM (17:43)
[2022-05-26] MEDS: Ondansetron 4 MG/2 ML Vial IM (17:43)
[2022-05-26 18:37] VITALS: BP 139/88; PULSE 81; RESP 18; O2SAT 94
== END 2022-05-26 18:40 | disposition home or self-care (01) ==
PROVIDERS: Emergency Provider Emergency Medicine; PCP Nurse Practitioner Family; Visit Provider Emergency Medicine
DX: M54.16 Radiculopathy, lumbar region (principal); G89.29 Other chronic pain; I10 Essential (primary) hypertension; F17.210 Nicotine dependence, cigarettes, uncomplicated; Z79.899 Other long term (current) drug therapy
CPT/HCPCS: 96372; 99282; J2405

== ENCOUNTER 2023-12-27 23:04 | Observation (INO) | payer MEDICAID, SELFPAY ==
[2023-12-27 23:05] VITALS: BP 71/40; PULSE 77; RESP 16; TEMP 36.6; O2SAT 90; BMI 33.3
[2023-12-27 23:12] VITALS: BP 88/53; PULSE 79; RESP 18; O2SAT 95
[2023-12-27 23:21] VITALS: BP 105/58; PULSE 75; RESP 16; O2SAT 92
[2023-12-27] MEDS: 0.9% Normal Saline (1000mL) 1,000 ML 1000 ML IV (23:22)
--- NOTE | 2023-12-27 23:22 | ED.RN ---
approx 5 drinks at bar tonight per pt
[2023-12-27 23:35] LABS: Absolute Neutrophil Count 4.9 X10^3/uL (2.0-7.7); Basophil# 0.05 X10^3/uL; Basophil% 0.6 % (0-1); Eosinophil# 0.26 X10^3/uL; Eosinophils% 2.9 % (0-5); Hematocrit 37.4 % (37-47); Hemoglobin 11.4 g/dL (12.0-15.0); Lymphocyte % 33.4 % (19-41); Mean Corp Hgb Conc 30.5 g/dL (32-36); Mean Corpuscular Hgb 25.3 pg (27.0-32.0); Mean Corpuscular Volume 82.9 fL (81-99); Mean Platelet Vol. 12.4 fl (6.2-12.0); Monocyte% 7.8 % (0-10); NRBC Flagged by Analyzer 0 % (0-5); Neutrophil # 4.93 X10^3/uL (2.7-7.7); Neutrophil % 54.9 % (47-70); Platelet Count 208 K/mm3 (150-450); RBC Distribution Width CV 19.3 % (11.6-14.6); RBC Distribution Width SD 58.2 fl (35.1-43.9); Red Blood Count 4.51 M/mm3 (4.2-5.4)
[2023-12-27 23:51] LABS: ALB/GLOB Ratio 0.8 RATIO (0.9-2.4); AST(SGOT) 16 U/L (15-37); Alanine Aminotransfer ALT/SGPT 19 U/L (13-56); Albumin, Serum 3.1 g/dL (3.2-5.0); Alkaline Phosphatase 112 U/L (45-117); Anion Gap 10 (5-15); BUN 10 mg/dL (7-18); BUN/Creat Ratio 7.2 RATIO (10-20); Chloride 106 mmol/L (98-107); Creatinine, Serum 1.38 mg/dL (0.55-1.02); EST Glomerular Filtration Rate 42 mL/min (>60); Est Glom Filt Rate - Afr Amer 51 mL/min (>60); Estimated Creatinine Clearance 54.94 ml/min; Globulin 3.9 g/dL (2.2-4.2); Glucose 102 mg/dL (74-106); Potassium 3.6 mmol/L (3.5-5.1); Sodium Level 139 mmol/L (136-145)
[2023-12-28] VITALS (8 sets, daily range): BP systolic 100–139; BP diastolic 50–78; PULSE 68–73; RESP 16; TEMP 36.1–36.7; O2SAT 86–97; BMI 32.5
[2023-12-28 00:11] LABS: Lactic Acid 4.3 mmol/L (0.4-1.9)
--- NOTE | 2023-12-28 00:28 | EX.ED.DYSGE1 ---
HPI History of Present Illness Chief Complaint: Back Detail of Chief Complaint: Back pain and feet pain Informant: patient, spouse/S.O. and EMS Onset/Context/Timing Onset: Weeks Context: Gradual Onset Timing: Continuous Quality: Numbness, tingling and pain Location: Feet Current Severity: Mild Maximum Severity: Moderate Worsened by: Walking and has symptoms of claudication after 1 block Relieved by: Presently nothing Associated Symptoms Associated Symptoms: Patient presented hypotensive Narrative Narrative: Patient is a 53-year-old woman with chronic back pain. She has been seen in the emergency room for chronic back pain. She also has history of peripheral arterial disease and had stent placed left and right femoral artery 1 year ago at facility. Patient's had feet numbness for some time. Is now constant. She also reports pains in her calf. She states she is not able to walk 1 or 2 blocks without having pain. The pain goes away with rest. Prior similar symptoms: Yes Recent Illness/Hospitalization: No PFSH PFS Medical History Anxiety Back pain Degenerative disc disease Depression HTN (hypertension) Home Medications hydroxyzine pamoate 25 mg capsule 25 mg PO TID PRN PRN Anxiety ##30 04/02/16 [Rx Last Taken Unknown] lisinopril 10 mg tablet 10 mg PO DAILY 04/02/16 [History Last Taken Unknown] pregabalin 150 mg capsule 150 mg PO TID 04/28/22 [History Last Taken Unknown] simvastatin 10 mg tablet 1 tab PO QHS 04/28/22 [History Last Taken Unknown] omeprazole 20 mg capsule,delayed release 20 mg PO DAILY 05/26/22 [History Last Taken Unknown] oxycodone-acetaminophen 5 mg-325 mg tablet (Percocet) 1 tab PO Q6H PRN pain 3 days #10 tabs 05/26/22 [Rx Last Taken Unknown] sertraline 100 mg tablet 100 mg PO DAILY 05/26/22 [History Last Taken Unknown] tizanidine 2 mg capsule 2 mg PO Q8H PRN muscle spasticity #10 caps 05/26/22 [Rx Last Taken Unknown] Allergy/AdvReac Type Severity Reaction Status Date / Time No Known Allergies Allergy Verified 12/27/23 23:05 Social History household members: significant other Smoking Status: Current every day smoker tobacco type: cigarettes alcohol intake: current ROS ROS ED Constitutional Constitutional ED: Denies chills, fever(s), subjective or sweats Eyes Eyes: Denies blurry vision or change in vision ENT ENT ED: Denies ear pain, rhinorrhea or sore throat Cardiovascular Cardiovascular: Denies chest pain, palpitations or racing heartbeat Respiratory/Chest Respiratory/Chest: Denies cough, dyspnea or dyspnea on exertion Gastrointestinal Gastrointestinal: Denies abdominal pain, melena, nausea or vomiting Genitourinary Genitourinary ED: Denies dysuria, hematuria or urinary frequency Musculoskeletal Musculoskeletal: Denies arthralgias, myalgias or neck pain Neurologic Neurologic: Reports paresthesias RLE (Foot) and LLE (Foot) Psychiatric Psychiatric: Denies anxiety Endocrine Endocrinology: Denies cold intolerance or heat intolerance Hematologic/Lymphatic Hematologic/Lymphatic: Reports systems reviewed and no addt'l complaints, except as documented EXAM Physical Exam Const Vital Signs: 12/27/23 23:05 12/27/23 23:12 12/27/23 23:21 Temperature 97.8 F Temperature Source Oral Pulse Rate 77 79 75 Respiratory Rate 16 18 16 Blood Pressure 71/40 L 88/53 L 105/58 L Blood Pressure Mean 50 64 73 Pulse Ox 90 95 92 Oxygen Delivery Method Room Air Room Air Room Air Oxygen Flow Rate (L/min) 12/28/23 00:11 12/28/23 00:15 Temperature Temperature Source Pulse Rate 68 Respiratory Rate 16 Blood Pressure 112/62 Blood Pressure Mean 78 Pulse Ox 86 96 Oxygen Delivery Method Room Air Nasal Cannula Oxygen Flow Rate (L/min) 2 Positive well nourished, well developed and obese Constitutional Narrative: Patient is somnolent. She admits to 2 shots and 2 twisted ice teas General Appearance ED: well developed and NAD; Negative for cyanotic or diaphoretic Nutritional Appearance: obese HEENT Reports dry mucous membranes HEENT Narrative: Head is atraumatic and normocephalic. Ears normal. Nares patent. Posterior pharynx is normal. Mouth ED: Yes dry mucous membranes Mouth: dry mucous membranes Eyes PERRL and EOMs intact bilaterally General Eye ED: Negative for pale conjunctiva or scleral icterus Neck no lymphadenopathy, supple and no JVD Chest Wall inspection of chest normal and palpation of chest normal Resp normal respiratory effort and clear to auscultation bilaterally Cardio regular rate, regular rhythm, S1 normal heart sound, S2 normal heart sound and no murmurs GI normal to inspection, nondistended, normoactive bowel sounds, non-tender, non-distended and no masses; Negative for hepatosplenomegaly Auscultation: normoactive bowel sounds Palpation: soft Back/Spine no CVA tenderness Lumbar Spine / Lower Back: lumbar spinal tenderness Extremity Negative for normal to inspection Extremity Narrative: Stigmata of peripheral arterial disease. Toes are mottled. There is no pallor. Capillary fill is delayed. This may be due to the fact that she is hypotensive. There was no palpable pulses. Once blood pressure improved there was no Doppler flow noted right or left DP. She has monophasic flow PT bilaterally. Neuro oriented x3, CN's II-XII intact bilaterally and No no sensory deficits noted Neuro Narrative: Abnormal sensation right and left foot. Sensorium / Orientation: Negative for alert Motor Exam: strength 5/5 throughout Psych Mood & Affect: depressed Skin no rashes or lesions noted MDM MDM MDM Narrative Medical decision making narrative: Since patient is hypotensive and would not expect 50 mcg of fentanyl to cause this we will obtain appropriate blood work. Fluid bolus was ordered. Of note patient is tanned. There are liriano lines. Do not believe this to be due to Bennett's disease/insufficiency etc. Need to rule out infectious cause. This may be due to overmedication. Patient did respond to IV fluids. Her pressure improved from 71/40 to 112/62. Patient is presently on 2 L of oxygen since her pulse ox was low. In light of this we will obtain chest x-ray. This was not initially ordered. Patient and gentleman that is with her refused rectal exam. I am formed patient and significant other the importance of rectal exam. He he informed that no man is going to do a rectal exam on her. He he would not even allow me to remove her jeans he. He states that he feels uncomfortable someone else removing her jeans. History & Record Review Discussion w/independent historian: Patient and Significant other Lab Data Attestation: I reviewed the patient's lab results. Lab results narrative: Patient had approximately a 4 g drop in her hemoglobin. BUN to creatinine ratio is normal. Creatinine is elevated. Lactate was elevated at 4.3. Labs: Laboratory Results - last 24 hr 12/27/23 12/27/23 23:20 23:53 WBC 9.0 RBC 4.51 Hgb 11.4 L Hct 37.4 MCV 82.9 MCH 25.3 L MCHC 30.5 L RDW Std Deviation 58.2 H RDW Coeff of Francie 19.3 H Plt Count 208 MPV 12.4 H Immature Gran % (Auto) 0.400 Neut % (Auto) 54.9 Lymph % (Auto) 33.4 [place] % (Auto) 7.8 Eos % (Auto) 2.9 Baso % (Auto) 0.6 Absolute Neuts (auto) 4.9 Absolute Lymphs (auto) 3.00 Nucleated RBC % 0 Sodium 139 Potassium 3.6 Chloride 106 Carbon Dioxide 23.0 Anion Gap 10 BUN 10 Creatinine 1.38 H Estim Creat Clear Calc 54.94 Est GFR (MDRD) Af Amer 51 L Est GFR (MDRD) Non-Af 42 L BUN/Creatinine Ratio 7.2 L Glucose 102 Lactic Acid 4.3 H* Calcium 9.0 Total Bilirubin 0.20 AST 16 ALT 19 Alkaline Phosphatase 112 Total Protein 7.0 Albumin 3.1 L Globulin 3.9 Albumin/Globulin Ratio 0.8 L Ethyl Alcohol 46.0 Alcohol is 46. This does not explain patient's depressed level of consciousness. Radiography Chest X-Ray - ED: 1 View and Read by ED Physician (Portable single view chest x-ray reveals no infiltrate. There is no effusion. Cardiac silhouette and size normal. Mediastinum is normal. Osseous structures unremarkable. This independent reviewed interpreted by me at 0058.) EKG Initial EKG: Attestation: I personally reviewed and interpreted this EKG as follows: Interpretation: Sinus Rhythm (Rate is 79. There is low voltage. MT interval is 198 ms. Cures duration 84 ms. QT duration 282 ms. [place] is normal.) Management Discussion w/another healthcare provider: Access Liaison (Spoke to Dr. Whitley regarding anticoagulation. He preferred not to have patient anticoagulated. He will see patient and obtain CTA once her creatinine improves.) Treatment and Re-Evaluation :: IV fluids. Patient declined rectal exam. Discharge Plan Dx/Rx/DC Orders Clinical Impression: Acute hypotension, Anemia, Paresthesia of foot, bilateral, Elevated serum creatinine, Peripheral artery disease, Acidosis, lactic Disposition Disposition: Acute Care Hospital [facility]
--- NOTE | 2023-12-28 00:50 | RAD_ITS ---
EXAM: XR CHEST, 1 VIEW CLINICAL INDICATION: Hypoxia TECHNIQUE: Frontal view of the chest. COMPARISON: Previous chest radiographs of 12/18/2014. FINDINGS: LUNGS AND PLEURAL SPACES: Lesser degree of inspiration with crowding of bronchovascular markings. Interval development of hazy infiltrate within the left lower lung, partially silhouetting the lateral left hemidiaphragm, due to atelectasis versus pneumonia. When allowing for the lesser degree of inspiration, the bronchovascular markings in the right lower lung are felt to be stable. Mild peribronchial cuffing is noted. No pneumothorax. No pleural effusion. HEART: Borderline cardiomegaly, accentuated by lesser degree of inspiration and portable technique. Normal pulmonary vasculature for technique. MEDIASTINUM: Calcified right paratracheal lymph node indicating remote granulomatous infection. Central airways and mediastinal contour are unremarkable. BONES/JOINTS: No acute osseous abnormality. SOFT TISSUES: Unremarkable. RAD/Chest 1 View (Portable) IMPRESSION: Lesser degree of inspiration. Development of hazy infiltrates within the left lower lung laterally, secondary to atelectasis versus pneumonia. Peribronchial cuffing indicating bronchial wall inflammation. Electronically Signed: Johnie Donohue MD at 2:53 EDT ,
--- NOTE | 2023-12-28 01:18 | HP.PCM.HOS_ITS ---
[facility] - General General Date of Admission: 12/28/23 Date of Service: 12/28/23 Chief Complaint: Back Pain, Foot Pain and Hypotensive. HPI Narrative VONDA BAUTISTA, is a 53 F with a past medical history of essential hypertension, obesity; with BMI of 33.3 this admission, ongoing tobacco abuse, neuropathy, OA and DDD with history of chronic back pain and sciatica, depression with anxiety and severe PAD; s/p stents to RLE (about one year ago at a facility) on Xarelto, ongoing tobacco abuse who presents to [facility] ER complaining of back pain, foot pain and hypotension. Ms. Bautista reports her symptoms are chronic but over the past few day they acutely began to worsen as she is now only able to walk about 1-2 block without severe pain in her Right calf and numbness in both feet that goes away with rest. Unfortunately, she continues to smoke but she denies recent injury. She also denies associated fever, chills, nausea, vomiting, chest pain or SOB and her feet are pink with good cap refill and no signs of acute ischemia since her blood pressure and mental status have improved. According to my conversation with the COMPENSATION ADJUSTER this patient was picked up by EMS at a bar after having 4 drinks and then she received Fentanyl 50 mcg IV x 2 while en-route for severe back pain. In the ER she was noted to be hypotensive in the 71/40 mm Hg range present on admission with lactic acidosis of 4.3 mmol/L present on admission in addition to being drowsy and lethargic due to Adverse Drug Reaction to Fentanyl combined with a DOROTHEA of 46 mg/dL causing Toxic Encephalopathy with patient likely having chronically poor pulses exacerbated by hypotension in the setting of known PAD and stents and she was then admitted to the general medical floor under observation status for a stay that is expected to be less than 48 hours. [facility] Medical History Anxiety Back pain Degenerative disc disease Depression HTN (hypertension) Home Medications hydroxyzine pamoate 25 mg capsule 25 mg PO TID PRN PRN Anxiety ##30 04/02/16 [Rx Last Taken Unknown] lisinopril 10 mg tablet 10 mg PO DAILY 04/02/16 [History Last Taken Unknown] pregabalin 150 mg capsule 150 mg PO TID 04/28/22 [History Last Taken Unknown] amlodipine 10 mg tablet 10 mg PO DAILY 12/28/23 [History Last Taken Unknown] aspirin 81 mg tablet,delayed release 81 mg PO DAILY 12/28/23 [History Last Taken Unknown] atorvastatin 80 mg tablet 80 mg PO DAILY 12/28/23 [History Last Taken Unknown] buspirone 5 mg tablet 5 mg PO TID 12/28/23 [History Last Taken Unknown] duloxetine 60 mg capsule,delayed release (Cymbalta) 60 mg PO DAILY 12/28/23 [History Last Taken Unknown] hydrocodone 7.5 mg-acetaminophen 325 mg tablet 1 tab PO TID PRN PRN pain 12/28/23 [History Last Taken Unknown] pregabalin 225 mg capsule 225 mg PO TID 12/28/23 [History Last Taken Unknown] rivaroxaban 20 mg tablet (Xarelto) 20 mg PO DAILY 12/28/23 [History Last Taken Unknown] Allergy/AdvReac Type Severity Reaction Status Date / Time No Known Allergies Allergy Verified 12/27/23 23:05 Social History household members: significant other number of children: 3 current occupation: housewife Smoking Status: Current every day smoker tobacco type: cigarettes alcohol intake: current ROS ROS Narrative Review of systems was not possible at the time of admission due to lethargy. Review of Systems ROS Unobtainable: due to encephalopathy Vital Signs Vital Signs Vital Signs: 12/27/23 23:05 12/27/23 23:12 12/27/23 23:21 Temperature 97.8 F Temperature Source Oral Pulse Rate 77 79 75 Respiratory Rate 16 18 16 Blood Pressure 71/40 L 88/53 L 105/58 L Blood Pressure Mean 50 64 73 Pulse Ox 90 95 92 Oxygen Delivery Method Room Air Room Air Room Air Oxygen Flow Rate (L/min) 12/28/23 00:11 12/28/23 00:15 Temperature Temperature Source Pulse Rate 68 Respiratory Rate 16 Blood Pressure 112/62 Blood Pressure Mean 78 Pulse Ox 86 96 Oxygen Delivery Method Room Air Nasal Cannula Oxygen Flow Rate (L/min) 2 Weight Weight: 212 lb 11.937 oz Body Mass Index (BMI) 33.3 Physical Exam Const no apparent distress Constitutional Narrative: Patient is lethargic but arousable. Orientation / Consciousness: lethargic HEENT normocephalic, head/scalp atraumatic, hearing grossly normal bilaterally and moist oral mucous membranes Eyes PERRL and EOMs intact bilaterally Neck no lymphadenopathy and supple Resp normal respiratory effort, no retractions, no use of accessory muscles and clear to auscultation bilaterally Cardio regular rate and regular rhythm GI normal to inspection, nondistended, normoactive bowel sounds, soft to palpation, non-tender and non-distended GI Narrative: Obese. Extremity normal to inspection Extremity Narrative: Patient has no signs of acute ischemia with both feet pink with 1-2+ pulses and good cap refill. Skin Skin Narrative: Patient has no evidence of rash at this time. Neuro moves all extremities Neuro Narrative: Patient is lethargic but arousable. Speech: speech normal Psych Psych Narrative: Patient is lethargic but arousable. Results Medical Records Data Attestation: I reviewed the patient's medical records Lab / Micro Data Attestation: I reviewed the patient's lab results. 12/27/23 23:20 12/27/23 23:20 Labs: Laboratory Results - last 24 hr 12/27/23 23:20: WBC 9.0, RBC 4.51, Hgb 11.4 L, Hct 37.4, MCV 82.9, MCH 25.3 L, MCHC 30.5 L, RDW Std Deviation 58.2 H, RDW Coeff of Francie 19.3 H, Plt Count 208, MPV 12.4 H, Immature Gran % (Auto) 0.400, Neut % (Auto) 54.9, Lymph % (Auto) 33.4, [place] % (Auto) 7.8, Eos % (Auto) 2.9, Baso % (Auto) 0.6, Absolute Neuts (auto) 4.9, Absolute Lymphs (auto) 3.00, Nucleated RBC % 0, Sodium 139, Potassium 3.6, Chloride 106, Carbon Dioxide 23.0, Anion Gap 10, BUN 10, Creatinine 1.38 H, Estim Creat Clear Calc 54.94, Est GFR (MDRD) Af Amer 51 L, Est GFR (MDRD) Non-Af 42 L, BUN/Creatinine Ratio 7.2 L, Glucose 102, Lactic Acid 4.3 H*, Calcium 9.0, Total Bilirubin 0.20, AST 16, ALT 19, Alkaline Phosphatase 112, Total Protein 7.0, Albumin 3.1 L, Globulin 3.9, Albumin/Globulin Ratio 0.8 L 12/27/23 23:53: Ethyl Alcohol 46.[address] [facility] Imaging Services [address] [place] [address] Chest 1 View (Portable) MR#: [id number] Acct: [id number] Name: VONDA BAUTISTA Rep #: [id number] : 1970 F 53 From: Johnie Donohue MD PCP: Dr. Gena Gómez, DO Status: ADM RISA Study: Chest 1 View (Portable) Date of Exam: 12/28/23 Exam# [id number] Ordering Dr: Mark Tello MD EXAM: XR CHEST, 1 VIEW CLINICAL INDICATION: Hypoxia TECHNIQUE: Frontal view of the chest. COMPARISON: Previous chest radiographs of 12/18/2014. FINDINGS: LUNGS AND PLEURAL SPACES: Lesser degree of inspiration with crowding of bronchovascular markings. Interval development of hazy infiltrate within the left lower lung, partially silhouetting the lateral left hemidiaphragm, due to atelectasis versus pneumonia. When allowing for the lesser degree of inspiration, the bronchovascular markings in the right lower lung are felt to be stable. Mild peribronchial cuffing is noted. No pneumothorax. No pleural effusion. HEART: Borderline cardiomegaly, accentuated by lesser degree of inspiration and portable technique. Normal pulmonary vasculature for technique. MEDIASTINUM: Calcified right paratracheal lymph node indicating remote granulomatous infection. Central airways and mediastinal contour are unremarkable. BONES/JOINTS: No acute osseous abnormality. SOFT TISSUES: Unremarkable. RAD/Chest 1 View (Portable) IMPRESSION: Lesser degree of inspiration. Development of hazy infiltrates within the left lower lung laterally, secondary to atelectasis versus pneumonia. Peribronchial cuffing indicating bronchial wall inflammation. Electronically Signed: Johnie Donohue MD at 2:53 EDT , CC: Dr. Gena Gómez DO; Dr. Mark Tello MD ~ Data Warehousing Manager: Signed Assessment & Plan Assessment/Plan (1) Toxic encephalopathy: (2) Acute hypotension: (3) Adverse drug reaction: QUALIFIERS: Encounter type: initial encounter Qualified Code(s): T50.905A - Adverse effect of unspecified drugs, medicaments and biological substances, initial encounter (4) Peripheral artery disease: (5) Paresthesia of foot, bilateral: PLAN: Plan 1. Hypotension, Lethargy with Toxic Encephalopathy and Lactic Acidosis of 4.3 mmol/L present on admission likely due to Adverse Drug Reaction to a combination of EtOH and Fentanyl - Admit to general medical floor under observation status. Continue IVF and supportive care plus give prn Narcan for oversedation. Serialize lactates to follow trend. Minimize opiates and other potentially TANGLED YARN WORKER- active medications. 2. History of Severe PAD; s/p stents to RLE (about one year ago at a facility) on Xarelto with ongoing tobacco abuse and diminished pulses in her Right foot that are likely chronic exacerbated by transient hypotension complicating #1 - Continue home medications. Tobacco cessation will strongly encouraged when patient marquez up from her combination of Fentanyl and EtOH. Nicotine patch will be offered to control cravings. ER physician consulted vascular surgeon property assessment monitor to see this patient on-rounds in the AM due to her decreased pulses and chronic but worsening claudication symptoms exacerbated by hypotension due to #1 with recommendation given to not start heparin at this time and with help appreciated in advance. 3. DDD with history of chronic back pain and sciatica with neuropathy triggering EMS call in the first place compounding #1 & #2 - Give Tylenol prn and also minimize TANGLED YARN WORKER-active medications to allow sensorium to clear. 4. Essential hypertension - Hold scheduled antihypertensives in light of #1. 5. Obesity; with BMI of 33.3 this admission - Weight loss will be recommended. Check TSH. 6. Depression with Anxiety - Hold current regimen until opiates and alcohol wear off. 7. OA - Stable. 8. DVT prophylaxis - Patient is already on Xarelto which will be continued. Total time: Approximately 45 minutes. Charges/Coding Visit Charges OBSV E&M: 49949 Observ/hosp same date L1
[2023-12-28 03:15] LABS: Allen Test Positive; Base Excess 1 mmol/L (-2 to +2); Bicarbonate 26.9 mmol/L (22-26); Blood Gas Specimen Type ART; Mode Not entered; O2 Delivery Device Cannula; PO2 63 mmHG (75-100); SITE L Radial; SO2 90 % (95-99); Total Carbon Dioxide 28 mmol/L; pCO2 51.1 mmHg (35-45); pH 7.33 (7.35-7.45)
[2023-12-28 03:30] LABS: Reflex Lactate? Y
[2023-12-28 03:57] LABS: Absolute Lymphocyte Count 2.15 X10^3/uL (0.83-4.51); Absolute Neutrophil Count 4.5 X10^3/uL (2.0-7.7); Basophil# 0.03 X10^3/uL; Basophil% 0.4 % (0-1); Eosinophils% 1.4 % (0-5); Hematocrit 35.9 % (37-47); Hemoglobin 11.2 g/dL (12.0-15.0); Lymphocyte # 2.15 X10^3/ul (0.83-4.51); Lymphocyte % 29.3 % (19-41); Mean Corp Hgb Conc 31.2 g/dL (32-36); Mean Corpuscular Hgb 25.7 pg (27.0-32.0); Mean Corpuscular Volume 82.5 fL (81-99); Mean Platelet Vol. 11.8 fl (6.2-12.0); Monocyte# 0.49 X10^3/uL; Monocyte% 6.7 % (0-10); NRBC Flagged by Analyzer 0 % (0-5); Neutrophil # 4.52 X10^3/uL (2.7-7.7); Neutrophil % 61.7 % (47-70); Platelet Count 201 K/mm3 (150-450); RBC Distribution Width CV 19.1 % (11.6-14.6); RBC Distribution Width SD 56.6 fl (35.1-43.9); Red Blood Count 4.35 M/mm3 (4.2-5.4); White Blood Count 7.3 K/mm3 (4.4-11.0)
[2023-12-28 04:31] LABS: Lactic Acid 0.8 mmol/L (0.4-1.9)
[2023-12-28] MEDS: Pregabalin 75 MG Capsule 225 MG PO (04:33)
[2023-12-28] MEDS: 0.9% Normal Saline (1000mL) 1,000 ML 100 ML IV (04:33)
[2023-12-28 04:48] LABS: ALB/GLOB Ratio 0.8 RATIO (0.9-2.4); AST(SGOT) 14 U/L (15-37); Alanine Aminotransfer ALT/SGPT 17 U/L (13-56); Albumin, Serum 2.9 g/dL (3.2-5.0); Alkaline Phosphatase 112 U/L (45-117); Anion Gap 6 (5-15); BUN 9 mg/dL (7-18); BUN/Creat Ratio 8.7 RATIO (10-20); Calcium,Total 8.8 mg/dL (8.5-10.1); Chloride 107 mmol/L (98-107); Creatinine, Serum 1.03 mg/dL (0.55-1.02); EST Glomerular Filtration Rate 59 mL/min (>60); Est Glom Filt Rate - Afr Amer 72 mL/min (>60); Globulin 3.8 g/dL (2.2-4.2); Glucose 107 mg/dL (74-106); Phosphorus 5.1 mg/dL (2.5-4.9); Potassium 3.9 mmol/L (3.5-5.1); Protein, Total 6.7 g/dL (6.4-8.2); Sodium Level 140 mmol/L (136-145); Thyroid Stim Hormone (TSH) 5.14 uIU/mL (0.358-3.74)
--- NOTE | 2023-12-28 07:35 | PCM.PN.HOSP ---
Reason for Visit Reason for Visit: Diagnoses Unspecified toxic encephalopathy (12/28/23) Peripheral vascular disease, unspecified (12/28/23) Hypotension, unspecified (12/28/23) Paresthesia of skin (12/28/23) Adverse effect of unspecified drugs, medicaments and biological substances, initial encounter (12/28/23) Subjective Subjective Feels back to baseline. Patient notes that she gets pain in her extremities when she walks. She had acute pain yesterday that warranted EMS being contacted and being brought here. Patient states that she already has an appointment set up with vascular surgeon [facility]. Objective Data Objective Data Vital Signs: Vital Signs Temp Pulse Resp BP Pulse Ox O2 Del Method O2 Flow Rate 36.1 C L 68 16 100/50 L 96 Nasal Cannula 2 12/28/23 04:53 12/28/23 04:53 12/28/23 04:53 12/28/23 04:53 12/28/23 04:53 12/28/23 04:53 12/28/23 04:53 Oxygen Flow Rate (L/min) 2 Oxygen Delivery Method Nasal Cannula Weight: 94.4 kg Body Mass Index (BMI) 32.5 Intake & Output: Intake and Output for Last 24 Hours 12/26/23 12/27/23 12/28/23 23:59 23:59 23:59 Intake Total 1240 / 1240 Balance 1240 / 1240 Lab / Micro Data 12/28/23 03:43 12/28/23 03:43 Labs: Laboratory Results - last 24 hr 12/27/23 23:20: WBC 9.0, RBC 4.51, Hgb 11.4 L, Hct 37.4, MCV 82.9, MCH 25.3 L, MCHC 30.5 L, RDW Std Deviation 58.2 H, RDW Coeff of Francie 19.3 H, Plt Count 208, MPV 12.4 H, Immature Gran % (Auto) 0.400, Neut % (Auto) 54.9, Lymph % (Auto) 33.4, [place] % (Auto) 7.8, Eos % (Auto) 2.9, Baso % (Auto) 0.6, Absolute Neuts (auto) 4.9, Absolute Lymphs (auto) 3.00, Nucleated RBC % 0, Sodium 139, Potassium 3.6, Chloride 106, Carbon Dioxide 23.0, Anion Gap 10, BUN 10, Creatinine 1.38 H, Estim Creat Clear Calc 54.94, Est GFR (MDRD) Af Amer 51 L, Est GFR (MDRD) Non-Af 42 L, BUN/Creatinine Ratio 7.2 L, Glucose 102, Lactic Acid 4.3 H*, Calcium 9.0, Total Bilirubin 0.20, AST 16, ALT 19, Alkaline Phosphatase 112, Total Protein 7.0, Albumin 3.1 L, Globulin 3.9, Albumin/Globulin Ratio 0.8 L 12/27/23 23:53: Ethyl Alcohol 46.0 12/28/23 03:43: WBC 7.3, RBC 4.35, Hgb 11.2 L, Hct 35.9 L, MCV 82.5, MCH 25.7 L, MCHC 31.2 L, RDW Std Deviation 56.6 H, RDW Coeff of Francie 19.1 H, Plt Count 201, MPV 11.8, Immature Gran % (Auto) 0.500, Neut % (Auto) 61.7, Lymph % (Auto) 29.3, [place] % (Auto) 6.7, Eos % (Auto) 1.4, Baso % (Auto) 0.4, Absolute Neuts (auto) 4.5, Absolute Lymphs (auto) 2.15, Nucleated RBC % 0, Sodium 140, Potassium 3.9, Chloride 107, Carbon Dioxide 27.0, Anion Gap 6, BUN 9, Creatinine 1.03 H, Estim Creat Clear Calc 72.80, Est GFR (MDRD) Af Amer 72, Est GFR (MDRD) Non-Af 59 L, BUN/Creatinine Ratio 8.7 L, Glucose 107 H, Lactic Acid 0.8, Calcium 8.8, Phosphorus 5.1 H, Magnesium 2.0, Total Bilirubin 0.20, AST 14 L, ALT 17, Alkaline Phosphatase 112, Total Protein 6.7, Albumin 2.9 L, Globulin 3.8, Albumin/Globulin Ratio 0.8 L, TSH 5.14 H ABG Data ABG results: ABG 12/28/23 03:11 Specimen Type ART Sample Site L Radial pH 7.33 L Bicarbonate Actual 26.9 H Total CO2 28 Base Excess 1 O2 Saturation 90 L O2 % 2.0 ABG pCO2 51.1 H ABG pO2 63 L Ravi Test Positive O2 Delivery Device Cannula Vent Mode Not entered Radiography Diagnostic Testing: Radiology Impression Chest X-Ray 12/28/23 00:50 IMPRESSION: Lesser degree of inspiration. Development of hazy infiltrates within the left lower lung laterally, secondary to atelectasis versus pneumonia. Peribronchial cuffing indicating bronchial wall inflammation. Electronically Signed: Johnie Donohue MD at 2:53 EDT , Physical Exam Const alert and no apparent distress Resp normal respiratory effort Extremity Extremity Narrative: Diminished pulses in the feet. Delayed cap refill. No cyanosis or clubbing. Sensation grossly intact in the lower extremities. Assessment & Plan Assessment/Plan (1) Toxic encephalopathy: (2) Acute hypotension: (3) Adverse drug reaction: QUALIFIERS: Encounter type: initial encounter Qualified Code(s): T50.905A - Adverse effect of unspecified drugs, medicaments and biological substances, initial encounter (4) Peripheral artery disease: (5) Paresthesia of foot, bilateral: PLAN: Plan Toxic encephalopathy Resolved EtOH and Fentanyl Fentanyl was prescribed by the EMS with 50 mcg x 2. Hypotension Iatrogenic and resolved w IVF 2/2 fentanyl and likely compounded by alcohol. PAD Patient with known PAD with history of bilateral stents. Patient states that she has a follow-up appointment with vascular surgeon at [facility] on 27 January. Did tell the patient that we did reach out to our vascular surgeon here who could see her in the hospital and possibly have a CT angiogram. But given her lack of symptoms presently, that I think would be reasonable for her to follow-up with her vascular surgeon but did give her the option to stay. She would prefer to go but understands that if she does get worse or has rest pain notify someone or return to the emergency room. Continue with aspirin and atorvastatin. Chronic conditions: DDD with history of chronic back pain and sciatica with neuropathy triggering EMS call in the first place compounding #1 & #2 - Give Tylenol prn and also minimize MEDICAL OFFICE ASST-active medications to allow sensorium to clear. essential hypertension - Hold scheduled antihypertensives in light of hyptension Obesity; with BMI of 33.3 this admission Depression with Anxiety - Hold current regimen until opiates and alcohol wear off. OA - Stable. DVT prophylaxis - Patient is already on Xarelto which will be continued.
--- NOTE | 2023-12-28 09:32 | DS.PCM_ITS ---
Providers Date of Admission: 12/28/23 Primary Care Physician: Dr. Gena Gómez, DO Reason For Visit: ADVERSE DRUG REACTION TO FENTANYL Diagnosis Discharge Diagnosis (1) Toxic encephalopathy: Status: Acute Code(s): G92.9 - Unspecified toxic encephalopathy (2) Acute hypotension: Status: Acute Code(s): I95.9 - Hypotension, unspecified (3) Adverse drug reaction: Status: Acute Code(s): T50.905A - Adverse effect of unspecified drugs, medicaments and biological substances, initial encounter Qualifiers: Encounter type: initial encounter Qualified Code(s): T50.905A - Adverse effect of unspecified drugs, medicaments and biological substances, initial encounter (4) Peripheral artery disease: Status: Acute Code(s): I73.9 - Peripheral vascular disease, unspecified (5) Paresthesia of foot, bilateral: Status: Acute Code(s): R20.2 - Paresthesia of skin Plan Toxic encephalopathy * Resolved * EtOH and Fentanyl * Fentanyl was prescribed by the EMS with 50 mcg x 2. Hypotension * Iatrogenic and resolved w IVF * 2/2 fentanyl and likely compounded by alcohol. PAD * Patient with known PAD with history of bilateral stents. Patient states that she has a follow-up appointment with vascular surgeon at [facility] on 27 January. Did tell the patient that we did reach out to our vascular surgeon here who could see her in the hospital and possibly have a CT angiogram. But given her lack of symptoms presently, that I think would be reasonable for her to follow-up with her vascular surgeon but did give her the option to stay. She would prefer to go but understands that if she does get worse or has rest pain notify someone or return to the emergency room. * Continue with aspirin and atorvastatin. Chronic conditions: * DDD with history of chronic back pain and sciatica with neuropathy triggering EMS call in the first place compounding #1 & #2 - Give Tylenol prn and also minimize [employer]PRENTICE-active medications to allow sensorium to clear. * essential hypertension - Hold scheduled antihypertensives in light of hyptension * Obesity; with BMI of 33.3 this admission * Depression with Anxiety - Hold current regimen until opiates and alcohol wear off. * OA - Stable. DVT prophylaxis - Patient is already on Xarelto which will be continued. Medications at Discharge Home Medications hydroxyzine pamoate 25 mg capsule 25 mg PO TID PRN PRN Anxiety ##30 04/02/16 lisinopril 10 mg tablet 10 mg PO DAILY 04/02/16 pregabalin 150 mg capsule 150 mg PO TID 04/28/22 amlodipine 10 mg tablet 10 mg PO DAILY 12/28/23 aspirin 81 mg tablet,delayed release 81 mg PO DAILY 12/28/23 atorvastatin 80 mg tablet 80 mg PO DAILY 12/28/23 buspirone 5 mg tablet 5 mg PO TID 12/28/23 duloxetine 60 mg capsule,delayed release (Cymbalta) 60 mg PO DAILY 12/28/23 hydrocodone 7.5 mg-acetaminophen 325 mg tablet 1 tab PO TID PRN PRN pain 12/28/23 pregabalin 225 mg capsule 225 mg PO TID 12/28/23 rivaroxaban 20 mg tablet (Xarelto) 20 mg PO DAILY 12/28/23 Weight / BMI Weight Weight: 94.4 kg Body Mass Index (BMI) 32.5 ABG / Lab / Microbiology Data 12/28/23 03:43 12/28/23 03:43 Laboratory: Laboratory Results - last 24 hr 12/27/23 23:20: WBC 9.0, RBC 4.51, Hgb 11.4 L, Hct 37.4, MCV 82.9, MCH 25.3 L, M CHC 30.5 L, RDW Std Deviation 58.2 H, RDW Coeff of Francie 19.3 H, Plt Count 208, MPV 12.4 H, Immature Gran % (Auto) 0.400, Neut % (Auto) 54.9, Lymph % (Auto) 33.4, [place] % (Auto) 7.8, Eos % (Auto) 2.9, Baso % (Auto) 0.6, Absolute Neuts (auto) 4.9, Absolute Lymphs (auto) 3.00, Nucleated RBC % 0, Sodium 139, Potassium 3.6, Chloride 106, Carbon Dioxide 23.0, Anion Gap 10, BUN 10, Creatinine 1.38 H, Estim Creat Clear Calc 54.94, Est GFR (MDRD) Af Amer 51 L, Est GFR (MDRD) Non-Af 42 L, BUN/Creatinine Ratio 7.2 L, Glucose 102, Lactic Acid 4.3 H*, Calcium 9.0, Total Bilirubin 0.20, AST 16, ALT 19, Alkaline Phosphatase 112, Total Protein 7.0, Albumin 3.1 L, Globulin 3.9, Albumin/Globulin Ratio 0.8 L 12/27/23 23:53: Ethyl Alcohol 46.0 12/28/23 03:43: WBC 7.3, RBC 4.35, Hgb 11.2 L, Hct 35.9 L, MCV 82.5, MCH 25.7 L, MCHC 31.2 L, RDW Std Deviation 56.6 H, RDW Coeff of Francie 19.1 H, Plt Count 201, MPV 11.8, Immature Gran % (Auto) 0.500, Neut % (Auto) 61.7, Lymph % (Auto) 29.3, [place] % (Auto) 6.7, Eos % (Auto) 1.4, Baso % (Auto) 0.4, Absolute Neuts (auto) 4.5, Absolute Lymphs (auto) 2.15, Nucleated RBC % 0, Sodium 140, Potassium 3.9, Chloride 107, Carbon Dioxide 27.0, Anion Gap 6, BUN 9, Creatinine 1.03 H, Estim Creat Clear Calc 72.80, Est GFR (MDRD) Af Amer 72, Est GFR (MDRD) Non-Af 59 L, BUN/Creatinine Ratio 8.7 L, Glucose 107 H, Lactic Acid 0.8, Calcium 8.8, Phosphorus 5.1 H, Magnesium 2.0, Total Bilirubin 0.20, AST 14 L, ALT 17, A lkaline Phosphatase 112, Total Protein 6.7, Albumin 2.9 L, Globulin 3.8, Albumin/Globulin Ratio 0.8 L, TSH 5.14 H ABG: ABG 12/28/23 03:11 Specimen Type ART Sample Site L Radial pH 7.33 L Bicarbonate Actual 26.9 H Total CO2 28 Base Excess 1 O2 Saturation 90 L O2 % 2.0 ABG pCO2 51.1 H ABG pO2 63 L Ravi Test Positive O2 Delivery Device Cannula Vent Mode Not entered Radiography Diagnostic Testing: Radiology Impression Chest X-Ray 12/28/23 00:50 IMPRESSION: Lesser degree of inspiration. Development of hazy infiltrates within the left lower lung laterally, secondary to atelectasis versus pneumonia. Peribronchial cuffing indicating bronchial wall inflammation. Electronically Signed: Johnie Donohue MD at 2:53 EDT , D/C Instructions Discharge Diet: No restrictions Meaningful Use Info Meaningful Use Diagnoses (Choose all that apply): None applicable Discharge Plan Admission Admit Date/Time: 12/28/23 02:04 Primary Reason for Your Visit: toxic encephalopathy Attending Provider: Clay Franklin Primary Care Provider: Gena Gómez Consulting Providers: Jean Roberto Instructions Additional Instructions / Restrictions: You presented with confusion. His confusion was likely due to the fentanyl that you received in the ambulance. As we discussed, you do have known peripheral arterial disease and you are to follow-up with the vascular surgeon on January 27. Please keep that appointment. However, if you have worsening pain or pain while at rest or discoloration of your feet or lower extremities, please return to the emergency room immediately as that could be a sign of worsening arterial blockage in your legs. Discharge Orders/Prescriptions Prescriptions: Continued lisinopril 10 MG tablet 10 mg PO DAILY hydroxyzine pamoate 25 MG capsule 25 mg PO TID PRN PRN (Reason: Anxiety) Qty: 30 0RF Rx Instructions: causes drowsiness pregabalin 150 mg Capsule 150 mg PO TID buspirone 5 mg tablet 5 mg PO TID amlodipine 10 mg tablet 10 mg PO DAILY pregabalin 225 mg capsule 225 mg PO TID Xarelto 20 mg tablet 20 mg PO DAILY duloxetine [Cymbalta] 60 mg capsule,delayed release(DR/EC) 60 mg PO DAILY atorvastatin 80 mg tablet 80 mg PO DAILY aspirin 81 mg tablet,delayed release (DR/EC) 81 mg PO DAILY hydrocodone-acetaminophen 7.5-325 mg tablet 1 tab PO TID PRN PRN (Reason: pain) Referrals / Follow Up: Gena Gómez DO [Primary Care Provider] - Within 2 Weeks Disposition Disposition (needs filled in before D/C Order can be placed): Home, Self Care Charges/Coding Visit Charges Inpatient E&M: 48576 Disch Hosp
== END 2023-12-28 09:35 | disposition home or self-care (01) ==
LOC: ED 12-28 00:56 → PCU 12-28 02:11
PROVIDERS: Admitting Provider Internal Medicine; Emergency Provider Emergency Medicine; PCP Internal Medicine
DX: T51.94XA Toxic effect of unspecified alcohol, undetermined, initial encounter (principal); I73.9 Peripheral vascular disease, unspecified; G92.9 Unspecified toxic encephalopathy; E87.20 Acidosis, unspecified; I10 Essential (primary) hypertension; R20.2 Paresthesia of skin; I95.89 Other hypotension; G89.29 Other chronic pain; D64.9 Anemia, unspecified; F17.210 Nicotine dependence, cigarettes, uncomplicated; T40.415A Adverse effect of fentanyl or fentanyl analogs, initial encounter; E66.9 Obesity, unspecified; Z68.33 Body mass index [BMI] 33.0-33.9, adult; M54.30 Sciatica, unspecified side; F32.A Depression, unspecified; F41.9 Anxiety disorder, unspecified; M19.90 Unspecified osteoarthritis, unspecified site; Z79.899 Other long term (current) drug therapy; Z79.82 Long term (current) use of aspirin; Z79.01 Long term (current) use of anticoagulants
CPT/HCPCS: 36600; 71045; 80053; 80320; 82803; 83605; 83735; 84100; 84443; 85025; 93005; 96360; 96361; 99221; 99285; J7030; A4216; G0378; G0480

== ENCOUNTER 2025-07-19 12:59 | Emergency (ER) | payer MEDICAID, SELFPAY ==
[2025-07-19 12:59] VITALS: BP 119/70; PULSE 102; RESP 14; TEMP 35.5; O2SAT 98; BMI 26.9
--- NOTE | 2025-07-19 13:50 | RAD_ITS ---
PROCEDURE: LUMBAR SPINE 2 OR 3 VIEWS 07/19/2025 REASON FOR EXAM: INJURY/PAIN TECHNIQUE: Procedure Code: RADSPLL Modality: DX Procedure: LUMBAR SPINE 2 OR 3 VIEWS COMPARISON: None FINDINGS: Vertebrae: The vertebrae are unremarkable. Discs: Mild degree of disc space narrowing at the L5-S1 level. Alignment: Minimal dextroscoliosis. Other: Stents seen in both common iliac arteries and left external iliac artery. RAD/Lumbar Spine 2 or 3 Views IMPRESSION: No acute abnormality is seen. Reading Location: [id number]
--- NOTE | 2025-07-19 14:43 | ED.VIS.BACK ---
HPI History of Present Illness Chief Complaint: Back Detail of Chief Complaint: Exacerbation of chronic low back pain Informant: patient and spouse/S.O. Onset/Context/Timing Onset: Month(s) Context: Sudden Onset Chronic pain exacerbated by: Nothing specific that she is able to pinpoint Timing: Continuous Quality: Dull and Aching Location: Lumbar Current Severity: Moderate Maximum Severity: Severe Worsened by: improves with Movement, Bending and Lifting Relieved by: Nothing Associated Symptoms Associated Symptoms: - (Denies saddle anesthesia or paresthesia. Denies foot drop. Denies buckling of her knees going up or down steps); Negative for Numbness, Tingling, Radiation to Right Leg, Radiation to Left Leg, Fever, Abdominal Pain, Dysuria, Unable to Ambulate, Unable to Transfer, Urinary Retention, Urinary Incontinence, Constipation or Fecal Incontinence Narrative Narrative: Patient is a 54-year-old woman. She has history of chronic back pain. She states she has a herniated disc that was noted on MRI. She denies fever, chills night sweats. She denies recent dental procedure. She denies bowel bladder function. Denies saddle paresthesia anesthesia. Denies foot drop. She denies buckling of her knee going up or down steps. There is no history of direct trauma. She denies fever, chills night sweats. She denies weight loss. Patient does complain of pain in her calfs after walking 1 block. The pain resolves with rest. I suspect this is due to peripheral arterial disease and she does not have palpable pulses and has absence of hair on her toes. This was noted when she was admitted in the past for acute encephalopathy. Prior similar symptoms: Yes and With Prior Back Pain Recent Illness/Hospitalization: No [facility] Medical History Peripheral artery disease Paresthesia of foot, bilateral Anemia Acute hypotension Anxiety Depression HTN (hypertension) Back pain Degenerative disc disease Home Medications ?Medication ?Instructions ?Recorded ?Last Taken ?Type hydroxyzine pamoate 25 mg capsule 25 mg PO TID PRN PRN Anxiety ##30 04/02/16 Unknown Rx amlodipine 10 mg tablet 10 mg PO DAILY blood pressure 12/28/23 Unknown History aspirin 81 mg tablet,delayed 81 mg PO DAILY heart health 12/28/23 Unknown History release atorvastatin 80 mg tablet 80 mg PO DAILY cholesterol 12/28/23 Unknown History buspirone 5 mg tablet 5 mg PO TID anxiety 12/28/23 Unknown History duloxetine 60 mg capsule,delayed 60 mg PO DAILY mental health 12/28/23 Unknown History release (Cymbalta) hydrocodone 7.5 mg-acetaminophen 1 tab PO TID PRN PRN pain 12/28/23 Unknown History 325 mg tablet pregabalin 225 mg capsule 225 mg PO TID pain 12/28/23 Unknown History rivaroxaban 20 mg tablet (Xarelto) 20 mg PO DAILY blood thinner 12/28/23 Unknown History bupropion HCl 300 mg 24 hr tablet, 300 mg PO DAILY 07/19/25 Unknown History extended release cilostazol 100 mg tablet 100 mg PO BID 07/19/25 Unknown History hydrocodone-acetaminophen 5-325mg 1 tab PO Q6H PRN PRN Pain 3 days 07/19/25 Unknown Rx 5mg-325mg #10 TABLETS isosorbide mononitrate 30 mg 30 mg PO 07/19/25 Unknown History tablet,extended release 24 hr lisinopril 30 mg tablet 30 mg PO DAILY 07/19/25 Unknown History omeprazole 20 mg capsule,delayed 20 mg PO DAILY 07/19/25 Unknown History release topiramate 25 mg tablet 25 mg PO BID 07/19/25 Unknown History Allergy/AdvReac Type Severity Reaction Status Date / Time No Known Allergies Allergy Verified 07/19/25 13:00 Social History household members: significant other number of children: 3 current occupation: housewife Smoking Status: Current every day smoker tobacco type: cigarettes alcohol intake: current ROS ROS ED Constitutional Constitutional ED: Denies chills, fever(s), subjective or sweats Respiratory/Chest Respiratory/Chest: Denies dyspnea or dyspnea on exertion Gastrointestinal Gastrointestinal: Denies abdominal pain, constipation, diarrhea, melena, nausea or vomiting Genitourinary Genitourinary ED: Denies dysuria, hematuria or urinary frequency Musculoskeletal Musculoskeletal: Reports back pain; Denies arthralgias, myalgias or neck pain Integumentary Denies rash Neurologic Neurologic: Denies paresthesias or weakness Hematologic/Lymphatic Hematologic/Lymphatic: Denies easy bleeding or easy bruising EXAM Physical Exam Const Vital Signs: 07/19/25 12:59 Temperature 96 F L Temperature Source Temporal Pulse Rate 102 H Respiratory Rate 14 Blood Pressure 119/70 Blood Pressure Mean 86 Pulse Ox 98 Oxygen Delivery Method Room Air Positive well nourished and well developed General Appearance ED: well developed HEENT Reports moist mucous membranes HEENT Narrative: Head is atraumatic no cephalic. Ears normal. Nares patent Eyes PERRL and EOMs intact bilaterally General Eye ED: Negative for pale conjunctiva or scleral icterus Neck no lymphadenopathy, supple and no JVD Resp normal respiratory effort and clear to auscultation bilaterally Cardio regular rate, regular rhythm, S1 normal heart sound, S2 normal heart sound and no murmurs GI normal to inspection, nondistended, normoactive bowel sounds, soft to palpation, non-tender, non-distended and no masses GI Narrative: There is no pulsatile mass or abdominal bruit. Back/Spine normal to inspection; Negative for no thoracic nor lumbar tenderness Back/Spine Narrative: Para lumbar sacral discomfort on palpation. Normal sensation L3-S1. Lumbar Spine / Lower Back: straight leg raise negative bilaterally Extremity Extremity Narrative: Stigmata of PAD noted. Neuro oriented x3 and no sensory deficits noted Motor Exam: strength 5/5 throughout Deep Tendon Reflexes: Rt Patellar (L4): 2+, Lt Patellar (L4): 2+, Rt Ankle (S1): 2+ and Lt Ankle (S1): 2+ Deep Tendon Reflexes Back: Rt Patellar (L4): 2+, Lt Patellar (L4): 2+, Rt Ankle (S1): 2+ and Lt Ankle (S1): 2+ Plantar Reflex: Downgoing: bilateral (There is no clonus at the ankles.) Psych mental status grossly normal Skin no rashes or lesions noted and no wounds MDM MDM MDM Narrative Medical decision making narrative: Differential diagnosis is degenerative disc disease, muscular strain, history and physical not consistent with herniated disc or cauda equina. History is not consistent with epidural abscess or spontaneous epidural hematoma. Patient not on anticoagulant. Her neuroexam was normal. She was medicated with IV ketorolac and morphine. When patient was reassessed at 1441 she reported significant improvement. She discharged to home on NSAID and opiate analgesia since she has no contraindication. She was instructed follow-up with her doctor. Radiography Chest X-Ray - ED: Read by ED Physician (Three-view x-ray of the spine reveals some degenerative changes. There is no acute process noted. There is no lytic or blastic lesions noted.) Diagnostic Testing: Clinical Impression(s) from Imaging Studies Lumbar Spine X-Ray 07/19/25 13:50 IMPRESSION: No acute abnormality is seen. Reading Location: [facility] Discharge Plan Triage Chief Complaint: Back ED Provider: Mark Tello Dx/Rx/DC Orders Clinical Impression: Low back pain of over 3 months duration, Tachycardia, Anemia, Hypertension Instructions: ED Back Pain (Acute or Chronic) Prescriptions: New hydrocodone-acetaminophen 5-325 mg tablet 1 tab PO Q6H PRN PRN (Reason: Pain) 3 Days Qty: 10 0RF No Action hydroxyzine pamoate 25 MG capsule 25 mg PO TID PRN PRN (Reason: Anxiety) Qty: 30 0RF Rx Instructions: causes drowsiness buspirone 5 mg tablet 5 mg PO TID amlodipine 10 mg tablet 10 mg PO DAILY pregabalin 225 mg capsule 225 mg PO TID Xarelto 20 mg tablet 20 mg PO DAILY duloxetine [Cymbalta] 60 mg capsule,delayed release(DR/EC) 60 mg PO DAILY atorvastatin 80 mg tablet 80 mg PO DAILY aspirin 81 mg tablet,delayed release (DR/EC) 81 mg PO DAILY hydrocodone-acetaminophen 7.5-325 mg tablet 1 tab PO TID PRN PRN (Reason: pain) cilostazol 100 mg tablet 100 mg PO BID isosorbide mononitrate 30 mg tablet extended release 24 hr 30 mg PO topiramate 25 mg tablet 25 mg PO BID lisinopril 30 mg tablet 30 mg PO DAILY omeprazole 20 mg capsule,delayed release(DR/EC) 20 mg PO DAILY bupropion HCl 300 mg tablet extended release 24 hr 300 mg PO DAILY Primary Care Provider: Gena Gómez Referrals: Gena Gómez DO [Primary Care Provider, Internal Medicine] - 3-5 Days if not improving Print Language: Indian Disposition Disposition: Home, Self Care
[2025-07-19 14:58] VITALS: BP 121/77; PULSE 94; RESP 16; TEMP 36.6; O2SAT 97
== END 2025-07-19 14:58 | disposition home or self-care (01) ==
PROVIDERS: Emergency Provider Emergency Medicine; PCP Internal Medicine; Visit Provider Emergency Medicine
DX: M54.50 Low back pain, unspecified (principal); G89.29 Other chronic pain; D64.9 Anemia, unspecified; R00.0 Tachycardia, unspecified; I10 Essential (primary) hypertension; F17.210 Nicotine dependence, cigarettes, uncomplicated; Z79.899 Other long term (current) drug therapy
CPT/HCPCS: 72100; 96374; 96375; 99283; A4216; J2405